=== PATIENT | female | born 1970 | race Caucasian/White ===

== ENCOUNTER 2021-05-03 05:01 | Emergency (ER) | payer SELFPAY ==
[2021-05-03 05:01] VITALS: BP 195/91; PULSE 140; RESP 20; TEMP 37.1; O2SAT 98; BMI 44.4
[2021-05-03 05:08] VITALS: BP 195/91; PULSE 136; RESP 36
--- NOTE | 2021-05-03 05:12 | EKG12_ITS ---
Test Reason : CP Blood Pressure : / mmHG Vent. Rate : 108 BPM Atrial Rate : 108 BPM P-R Int : 138 ms QRS Dur : 088 ms QT Int : 348 ms P-R-T Axes : 065 031 028 degrees QTc Int : 466 ms Sinus tachycardia Otherwise normal ECG Confirmed by BERNADETTE SINGER, SHEILA ([id number]), fan mail editor BRENDA URBAN ([id number]) on 05/08/2021 6:43:37 AM Referred By: CHRISTINA Confirmed By:SHEILA FLEMING MD
--- NOTE | 2021-05-03 05:13 | EDS_ITS ---
HPI History of Present Illness Chief Complaint: Chest Pain Informant: patient and spouse/S.O. Narrative Narrative: 50-year-old female presenting to the emergency department with left- sided chest pain. She notes that the pain is severe tonight. She has had it for the past couple days. She notes that things that make it worse include laying on the left side touching her upper left back and chest, deep breathing and moving. She notes it feels better if she holds her chest. She denies any DVT or PE risk factors. She states that she was thinking that it was indigestion possibly her gallbladder because she thought her gallbladder was on the left side. She is worried she is having a heart attack. PFSH PFSH Home Medications diazepam 5 mg PO Q8 PRN #15 tab 05/03/21 [Rx Last Taken Unknown] oxycodone-acetaminophen 1 tab PO Q6H PRN PRN 5 Days #20 tablet 05/03/21 [Rx Last Taken Unknown] Allergy/AdvReac Type Severity Reaction Status Date / Time ciprofloxacin [From Cipro] Allergy Rash Verified 05/03/21 05:08 Penicillins Allergy Unknown Verified 05/03/21 05:07 Sulfa (Sulfonamide Allergy Rash Verified 05/03/21 05:07 Antibiotics) Social History (Updated 05/03/21 @ 05:[address] Keo Huitron, DO) Smoking Status: Former smoker substance use type: does not use ROS ROS ED Constitutional Constitutional ED: Denies chills or weight loss Eyes Eyes: Denies change in vision or diplopia ENT ENT ED: Denies ear pain, rhinorrhea or sore throat Cardiovascular Cardiovascular: Reports chest pain; Denies orthopnea, palpitations or racing heartbeat Respiratory/Chest Respiratory/Chest: Denies cough, dyspnea or orthopnea Gastrointestinal Gastrointestinal: Reports abdominal pain; Denies diarrhea, nausea or vomiting Genitourinary Genitourinary ED: Denies dysuria, hematuria or urinary frequency Musculoskeletal Musculoskeletal: Denies arthralgias or myalgias Integumentary Denies abscess or rash Neurologic Neurologic: Denies headache(s) or weakness Psychiatric Psychiatric: Denies anxiety, depression, suicidal ideation or suicidal thoughts Endocrine Endocrinology: Denies polydipsia, polyphagia or polyuria Allergic/Immunologic Allergic/Immunologic ED: Denies mouth swelling, tongue swelling or urticaria EXAM Physical Exam Const Vital Signs: 05/03/21 05:01 10/14/21 05:08 05/03/21 06:23 Temperature 98.8 F Temperature Source Oral Pulse Rate 140 H 136 H 90 Respiratory Rate 20 H 36 H 23 H Respiratory Effort Normal Blood Pressure 195/91 H 195/91 H Blood Pressure Mean 125 125 Pulse Ox 98 99 Oxygen Delivery Method Room Air Room Air Positive well nourished and well developed General Appearance ED: well developed HEENT Reports normocephalic, head/scalp atraumatic and moist mucous membranes Eyes PERRL and EOMs intact bilaterally Neck no lymphadenopathy, supple and no JVD Chest Wall Chest Narrative: Tender to palpation left chest left upper back Resp normal respiratory effort and clear to auscultation bilaterally Cardio regular rate and no murmurs Rate: tachycardic GI normal to inspection, nondistended, normoactive bowel sounds and non-tender Palpation: soft Back/Spine no CVA tenderness and normal ROM Extremity normal to inspection General Extremety ED: Negative for edema General Extremity: Negative for edema Neuro oriented x3 and CN's II-XII intact bilaterally Sensorium / Orientation: alert Motor Exam: strength 5/5 throughout Psych Mood & Affect: anxious and tearful; Negative for depressed Skin no rashes or lesions noted and no wounds Heart Score History: Slightly/Non-Suspicious ECG: Normal Age: >45 - <65 years Risk Factors: 1 or 2 Risk Factors Troponin: </= Normal Limit Score: 2 MDM MDM MDM Narrative Medical decision making narrative: My interpretation of the chest x-ray is no acute process. CBC is normal. CMP then 8 hours of constant symptoms. Her D- dimer slightly elevated at 0.58. CTA of the chest was ordered which does not demonstrate any pulmonary embolism or dissection. Clinically the patient has somatic dysfunction of her rib cage. It is reproducible it is made better by holding. I can write for have some pain medication. Would recommend heat gentle stretching. She may wish to follow-up with a chiropractor. Patient is more comfortable after Ativan Toradol and oxycodone. Should be discharged home return if worsening or concerns Lab Data Attestation: I reviewed the patient's lab results. Labs: Laboratory Results - last 24 hr 05/03/21 05/03/21 05/03/21 05:10 05:10 05:10 WBC 9.1 RBC 5.04 Hgb 14.3 Hct 44.2 MCV 87.7 MCH 28.4 MCHC 32.4 RDW Std Deviation 41.0 RDW Coeff of Filippo 12.8 Plt Count 292 MPV 9.8 Immature Gran % (Auto) 0.400 Neut % (Auto) 53.8 Lymph % (Auto) 33.6 [place] % (Auto) 9.4 Eos % (Auto) 2.1 Baso % (Auto) 0.7 Absolute Neuts (auto) 4.9 Absolute Lymphs (auto) 3.07 Nucleated RBC % 0 D-Dimer Quant (PE/DVT) 0.58 H* Sodium 139 Potassium 4.1 Chloride 103 Carbon Dioxide 29.0 Anion Gap 7 BUN 15 Creatinine 1.05 H Estim Creat Clear Calc 57.68 Est GFR (MDRD) Af Amer 71 Est GFR (MDRD) Non-Af 59 L BUN/Creatinine Ratio 14.3 Glucose 106 Calcium 8.9 Total Bilirubin 0.40 AST 24 ALT 25 Alkaline Phosphatase 102 Troponin I High Sens 7 Total Protein 8.1 Albumin 3.6 Globulin 4.5 H Albumin/Globulin Ratio 0.8 L Lipase 146 Radiography Diagnostic Testing: Clinical Impression(s) from Imaging Studies Chest X-Ray 05/03/21 05:40 IMPRESSION: No radiographic evidence of acute cardiopulmonary disease. Electronically Signed: Rosa Gomez MD at 5:59 EDT , Service support , Chest CTA 05/03/21 05:49 IMPRESSION: No CTA demonstrated pulmonary embolism or arterial dissection. Electronically Signed: Rosa Gomez MD at 6:52 EDT , Service support , EKG Initial EKG: Attestation: I personally reviewed and interpreted this EKG as follows: Comments: Sinus tachycardia with a ventricular rate of 108 Discharge Plan Triage Chief Complaint: Chest Pain ED Provider: Keo Huitron Dx/Rx/DC Orders Clinical Impression: Segmental and somatic dysfunction of rib cage Instructions: ED Chest Pain, Noncardiac Prescriptions: New oxycodone-acetaminophen [oxycodone-acetaminophen] 1 TABLET tablet 1 tab PO Q6H PRN PRN (Reason: pain) 5 Days Qty: 20 RF: 0 diazepam [diazepam] 5 MG tablet 5 mg PO Q8 PRN (Reason: Muscle Spasm) Qty: 15 RF: 0 Primary Care Provider: Kevin Gee III Referrals: Kevin Gee III, [Primary Care Provider] -
[2021-05-03 05:24] LABS: Absolute Lymphocyte Count 3.07 X10^3/uL (0.83-4.51); Absolute Neutrophil Count 4.9 X10^3/uL (2.0-7.7); Basophil# 0.06 X10^3/uL; Basophil% 0.7 % (0-1); Eosinophil# 0.19 X10^3/uL; Eosinophils% 2.1 % (0-5); Hematocrit 44.2 % (37-47); Hemoglobin 14.3 g/dL (12.0-15.0); Lymphocyte # 3.07 X10^3/ul (0.83-4.51); Lymphocyte % 33.6 % (19-41); Mean Corp Hgb Conc 32.4 g/dL (32-36); Mean Corpuscular Hgb 28.4 pg (27.0-32.0); Mean Corpuscular Volume 87.7 fL (81-99); Mean Platelet Vol. 9.8 fl (6.2-12.0); Monocyte# 0.86 X10^3/uL; Monocyte% 9.4 % (0-10); NRBC Flagged by Analyzer 0 % (0-5); Neutrophil # 4.92 X10^3/uL (2.7-7.7); Neutrophil % 53.8 % (47-70); Platelet Count 292 K/mm3 (150-450); RBC Distribution Width CV 12.8 % (11.6-14.6); Red Blood Count 5.04 M/mm3 (4.2-5.4); White Blood Count 9.1 K/mm3 (4.4-11.0)
[2021-05-03] MEDS: Ketorolac 30 MG/ML Syringe IV (05:24)
[2021-05-03] MEDS: LORazepam 2 MG/ML Syringe 1 MG IV (05:25)
--- NOTE | 2021-05-03 05:40 | RAD_ITS ---
STUDY: X-RAY CHEST REASON FOR EXAM: Female, 50 years old patient with chest pain. TECHNIQUE: Single PA view of the chest. COMPARISON: 07/18/2015. FINDINGS: Cardiac monitoring leads are present. The lungs are clear and expanded. There is no demonstrated pleural abnormality. Normal size heart. Normal mediastinum and taj. Normal visualized pulmonary arteries. Normal visualized aortic arch and descending thoracic aorta. Normal visualized thoracic spine. Normal visualized ribs, clavicles, and shoulders. There is no demonstrated abnormality of the visualized soft tissue structures of the upper abdomen. RAD/Chest 1 View (Portable) IMPRESSION: No radiographic evidence of acute cardiopulmonary disease. Electronically Signed: Rosa Gomez MD at 5:59 EDT , Service support ,
[2021-05-03 05:41] LABS: D-Dimer Quantitative (DVT/PE) 0.58 FEU/ug/m (0.27-0.49)
[2021-05-03 05:46] LABS: ALB/GLOB Ratio 0.8 RATIO (0.9-2.4); AST(SGOT) 24 U/L (15-37); Alanine Aminotransfer ALT/SGPT 25 U/L (13-56); Albumin, Serum 3.6 g/dL (3.2-5.0); Alkaline Phosphatase 102 U/L (45-117); Anion Gap 7 (5-15); BUN 15 mg/dL (7-18); BUN/Creat Ratio 14.3 RATIO (10-20); Calcium,Total 8.9 mg/dL (8.5-10.1); Chloride 103 mmol/L (98-107); Creatinine, Serum 1.05 mg/dL (0.55-1.02); EST Glomerular Filtration Rate 59 mL/min (>60); Est Glom Filt Rate - Afr Amer 71 mL/min (>60); Estimated Creatinine Clearance 57.68 ml/min; Globulin 4.5 g/dL (2.2-4.2); Glucose 106 mg/dL (74-106); Lipase 146 U/L (73-393); Potassium 4.1 mmol/L (3.5-5.1); Protein, Total 8.1 g/dL (6.4-8.2); Sodium Level 139 mmol/L (136-145); Troponin-I HS 7 pg/mL (3.0-54.0)
--- NOTE | 2021-05-03 05:49 | CT_ITS ---
STUDY: CTA CHEST REASON FOR EXAM: Female, 50 years old patient with elevated D Dimer and chest pain. RADIATION DOSAGE (If Supplied By Facility): CTDIvol = ( 16.22 ) mGy, DLP = ( 495.04 ) mGycm TECHNIQUE: The examination was performed with the intravenous administration of 100 mL of Isovue-370. Post-processing of the angiographic images was performed, with multiplanar reformation and 3D reconstruction. Individualized dose optimization techniques were used for this CT. COMPARISON: Prior comparison studies are not available for review at this time. FINDINGS: Normal enhancement of the main pulmonary artery and right and left pulmonary arteries. Normal enhancement of the bilateral peripheral pulmonary arteries. There is no demonstrated pulmonary embolism. Normal thoracic aorta and visualized great vessels. There is no demonstrated aortic dissection. Normal heart and pericardium. Normal mediastinum. Normal hilar regions. Normal visualized trachea and bronchi. The lungs are well expanded. Normal pulmonary parenchyma. Normal pleura. Normal chest wall structures. Normal osseous structures. Normal visualized upper abdomen. CT/CTA Chest W/WO Contrast IMPRESSION: No CTA demonstrated pulmonary embolism or arterial dissection. Electronically Signed: Rosa Gomez MD at 6:52 EDT , Service support ,
[2021-05-03 06:23] VITALS: PULSE 90; RESP 23; O2SAT 99
[2021-05-03 07:27] VITALS: BP 123/68; PULSE 93; RESP 15; O2SAT 96
[2021-05-03] MEDS: oxyCODONE 5 MG Tablet 10 MG PO (07:30)
== END 2021-05-03 07:38 | disposition home or self-care (01) ==
PROVIDERS: Emergency Provider Emergency Medicine; PCP Family Medicine
DX: M99.08 Segmental and somatic dysfunction of rib cage (principal); Z87.891 Personal history of nicotine dependence
CPT/HCPCS: 71045; 71275; 80053; 83690; 84484; 85025; 85379; 93005; 96374; 96375; 99285; Q9967; A4216

== ENCOUNTER → 2023-07-10 | Outpatient (CLI) | payer OTHER, SELFPAY ==
[2023-07-10 17:37] LABS: Absolute Lymphocyte Count 2.78 X10^3/uL (0.83-4.51); Absolute Neutrophil Count 5.8 X10^3/uL (2.0-7.7); Basophil# 0.06 X10^3/uL; Basophil% 0.6 % (0-1); Eosinophil# 0.17 X10^3/uL; Eosinophils% 1.8 % (0-5); Hematocrit 41.7 % (37-47); Hemoglobin 13.3 g/dL (12.0-15.0); Lymphocyte # 2.78 X10^3/ul (0.83-4.51); Lymphocyte % 29.6 % (19-41); Mean Corp Hgb Conc 31.9 g/dL (32-36); Mean Corpuscular Hgb 28.1 pg (27.0-32.0); Mean Platelet Vol. 10.9 fl (6.2-12.0); Monocyte# 0.55 X10^3/uL; Monocyte% 5.9 % (0-10); NRBC Flagged by Analyzer 0 % (0-5); Neutrophil # 5.78 X10^3/uL (2.7-7.7); Neutrophil % 61.7 % (47-70); Platelet Count 310 K/mm3 (150-450); RBC Distribution Width CV 12.7 % (11.6-14.6); RBC Distribution Width SD 41.3 fl (35.1-43.9); Red Blood Count 4.74 M/mm3 (4.2-5.4); White Blood Count 9.4 K/mm3 (4.4-11.0)
[2023-07-10 18:12] LABS: Hemoglobin A1c 5.2 % (3.8-5.6)
[2023-07-10 18:15] LABS: AST(SGOT) 22 U/L (15-37); Alanine Aminotransfer ALT/SGPT 20 U/L (13-56); Albumin, Serum 3.8 g/dL (3.2-5.0); Alkaline Phosphatase 105 U/L (45-117); Anion Gap 7 (5-15); BUN 15 mg/dL (7-18); Calcium,Total 8.3 mg/dL (8.5-10.1); Chloride 106 mmol/L (98-107); Cholesterol 268 mg/dL (200); Creatinine, Serum 0.75 mg/dL (0.55-1.02); EST Glomerular Filtration Rate 86 mL/min (>60); Est Glom Filt Rate - Afr Amer 104 mL/min (>60); Free T3 2.7 pg/mL (2.18-3.98); Globulin 3.8 g/dL (2.2-4.2); Glucose 88 mg/dL (74-106); High Density Lipoprotein 46 mg/dL; Potassium 3.8 mmol/L (3.5-5.1); Protein, Total 7.6 g/dL (6.4-8.2); Sodium Level 139 mmol/L (136-145); T4 Free Direct 1.09 ng/dL (0.76-1.46); Thyroid Stim Hormone (TSH) 3.82 uIU/mL (0.358-3.74); Triglycerides 333 mg/dL; Very Low Density Lipoprotein 67 mg/dL (5-40)
[2023-07-15 17:07] LABS: Anti-Thyroglobulin AB < 1.0 IU/mL (0.0-0.9); Thyroglobulin, Serum Qt. 20.3 ng/mL (1.5-38.5); Thyroid Peroxidase AB 10 IU/mL (0-34)
== END | disposition home or self-care (01) ==
LOC: MFPLAB 15:50
PROVIDERS: PCP Family Medicine; Visit Provider Family Medicine
DX: R63.5 Abnormal weight gain (principal)
CPT/HCPCS: 36415; 80053; 80061; 82533; 83036; 84432; 84439; 84443; 84481; 85025; 86376; 86800

== ENCOUNTER → 2023-08-18 | Outpatient (CLI) | payer OTHER, SELFPAY ==
--- OUTSIDE RECORDS SUMMARY | 2023-08-18 15:27 | XMS RPT_ITS | CCD ---
Author Name Unknown Address [address] [facility] [facility] [address] [place] [address] Organization [facility] Care Team Providers Care Safety Companion Name Role Phone Gerard THEODORE MD, Kevin A Primary Care Provider Nadia vailable Gerard THEODORE MD, Kevin Sargent Unavailable Unavailab le Gerard THEODORE MD, Kevin A Primary Care Provider Nadia vailable SOPHIA BEAR Attending Unavailabl e GERARD THEODORE, EKVIN Sargent Primary Care Unavailable Unavailable Primary Care Provider Unavailabl bradley GEE III, KEVIN Sargent Primary Care Unavailable SULMA HYLTON Attending Unavail able Allergies Allergy Classification Reported Allergen(s) Allergy Type Date of Onset Reaction(s) Facility (8 sources) Erythromycin; Translations: [ERYTHROMYCIN] Drug Allergy 6 Intolerance, GI Upset [facility] Work Phone: (8 sources) Latex; Translations: [LATEX] Drug Intolerance 0 Hives [facility] (3 sources) Penicillins; Translations: [PENICILLINS] Drug Intolerance 6 Intolerance, GI Upset [facility] Work Phone: (8 sources) Sulfonamides (Antibiotic); Translations: [SULFA (SULFONAMIDE ANTIBIOTICS)] Drug Allergy 0 Rash, Vomiting [facility] (6 sources) Seasonal [Other] Propensity to adverse reactions 6 [facility] Work Phone: (5 sources) Penicillins Drug Intolerance 6 Intolerance, GI Upset [facility] Work Phone: (2 sources) OTHER; Translations: [OTHER] Propensity to adverse reactions (disorder) 6 [facility] Other [facility] Medications Current Medications Medication Drug Class(es) Dates Sig (Normalized) Sig (Original) doxycycline monohydrate 100 mg oral tablet (2 sources) Tetracycline-clas s Drug Start: 2022 End: 12-05-2022 take 1 tablet by mouth twice daily doxycycline monohydrate 100 mg tablet Indications: Bacterial sinusitis Take 1 tablet by mouth twice daily for 7 days. 14 tablet 0 2022 12/05/2022 Active Completed/Discontinued Medications Medication Drug Class(es) Dates Sig (Normalized) Sig (Original) acetaminophen 325 mg oral capsule (6 sources) acetaminophen 32 5 mg cap Take by mouth. 0 Active Problems Active Problems Problem Classification Problem Date Documented Date Episodic/Chronic Abdominal pain (3 sources) Unspecified abdominal pain; Translations: [Pelvic and perineal pain] Onset: 06-10-2022 05-19-2023 Episodic Anxiety disorders (6 sources) Anxiety; Translations: [Other specified anxiety disorders] Onset: 07-24-2015 07-24-2015 Chronic Disorders of lipid metabolism (6 sources) Hyperlipidemia; Translations: [Hyperlipidemia, unspecified] Onset: 10-13-2009 10-13-2009 Chronic Essential hypertension (6 sources) Benign essential hypertension; Translations: [Essential (primary) hypertension] Onset: 10-12-2009 10-12-2009 Chronic Immunizations and screening for infectious disease (3 sources) Patient encounter status; Translations: [Encounter for screening for human papillomavirus (HPV)] Episodic Other lower respiratory disease (1 source) Cough; Translations: [Cough] Episodic Other nutritional; endocrine; and metabolic disorders (6 sources) Body mass index 40+ - severely obese; Translations: [Morbid (severe) obesity due to excess calories] Onset: 12-10-2017 12-10-2017 Chronic Other nutritional; endocrine; and metabolic disorders (1 source) Severe obesity; Translations: [Morbid (severe) obesity due to excess calories] Chronic Other upper respiratory infections (1 source) Bacterial sinusitis; Translations: [Chronic sinusitis, unspecified] Chronic Prolapse of female genital organs (1 source) Midline cystocele; Translations: [Cystocele, midline] Chronic Past or Other Problems Problem Classification Problem Date Documented Date Episodic/Chronic Genitourinary symptoms and ill-defined conditions (16 sources) Microscopic hematuria; Translations: [Other microscopic hematuria] Onset: 07-24-2015 07-24-2015 Episodic Other and unspecified benign neoplasm (6 sources) Angiomyolipoma of right kidney; Translations: [Benign lipomatous neoplasm of kidney] Onset: 08-24-2015 08-24-2015 Episodic Other nutritional; endocrine; and metabolic disorders (6 sources) Weight gain; Translations: [Abnormal weight gain] Onset: 10-12-2009 10-12-2009 Episodic Spondylosis; intervertebral disc disorders; other back problems (6 sources) Low back pain; Translations: [Bilateral low back pain without sciatica] Onset: 07-24-2015 07-24-2015 Episodic Results Test Name Value Interpretation Reference Range Facil ity Vital Signs Date Time Vital Sign Value Performing Clinician Anat mendoza 05-19-2023 11:06-0400 Body temperature 97.2 [degF] Carmita Athy PA-C Work Phone: [facility] 05-19-2023 11:06-0400 Body weight 120.11 kg Carmita Athy PA-C Work Phone: [facility] 05-19-2023 11:06-0400 Diastolic blood pressure 88 mm[Hg] Carmita Athy PA-C Work Phone: [facility] 05-19-2023 11:06-0400 Heart rate 85 /min Carmita Athy PA-C Work Phone: [facility] 05-19-2023 11:06-0400 Respiratory rate 21 /min Carmita Athy PA-C Work Phone: [facility] 05-19-2023 11:06-0400 SaO2% (BldA) [Mass fraction] 99 % Carmita Athy PA-C Work Phone: [facility] 05-19-2023 11:06-0400 Systolic blood pressure 128 mm[Hg] Carmita Athy PA-C Work Phone: [facility] 2022 07:15-0400 Body temperature 96.21 [degF] Parker Adair APRN.[employer] INSTALLER Work Phone: [facility] 2022 07:15-0400 Body weight 117.94 kg Parker Adair APRN.[employer] INSTALLER Work Phone: [facility] 2022 07:15-0400 Diastolic blood pressure 90 mm[Hg] Parker Giovany [employer]STALLER Work Phone: [facility] 2022 07:15-0400 Heart rate 90 /min Parker Adair [employer] IN[employer]ALLER Work Phone: [facility] 2022 07:15-0400 Respiratory rate 21 /min Parker Giovany [employer] INSTALLER Work Phone: [facility] 2022 07:15-0400 SaO2% (BldA) [Mass fraction] 98 % Parker Adair [employer] INSTALLER Work Phone: [facility] 2022 07:15-0400 Systolic blood pressure 150 mm[Hg] Parker Giovany [employer] INSTALLER Work Phone: [facility] 06-17-2022 09:11-0500 Body weight 119.3 kg Sulma Hess MD Work Phone: [facility] 06-17-2022 09:11-0500 Diastolic blood pressure 80 mm[Hg] Sulma Hess MD Work Phone: [facility] 06-17-2022 09:11-0500 Systolic blood pressure 134 mm[Hg] Sulma Hess MD Work Phone: [facility] 05-21-2022 09:25-0400 Body temperature 97 [degF] Kelsi Sin [employer] IN[employer]ALLER Work Phone: [facility] 05-21-2022 09:25-0400 Body weight 120.29 kg Kelsi Sin [employer]ER Work Phone: [facility] 05-21-2022 09:25-0400 Diastolic blood pressure 86 mm[Hg] Kelsi Sin [employer] IN[employer]ER Work Phone: [facility] 05-21-2022 09:25-0400 Heart rate 90 /min Kelsi Sin [employer]ER Work Phone: [facility] 05-21-2022 09:25-0400 Respiratory rate 18 /min Kelsi Sin APRN.[employer] INSTALLER Work Phone: [facility] 05-21-2022 09:25-0400 SaO2% (BldA) [Mass fraction] 99 % Kelsi Sin [employer] INSTALLER Work Phone: [facility] 05-21-2022 09:25-0400 Systolic blood pressure 142 mm[Hg] Kelsi Sin [employer] INST[employer]ER Work Phone: [facility] 10-25-2021 19:11-0400 Body temperature 97.59 [degF] Jayda Kc APRN.[employer] INSTALLER Work Phone: [facility] 10-25-2021 19:11-0400 Body weight 124.65 kg Jayda Kc APRN.[employer] INSTALLER Work Phone: [facility] 10-25-2021 19:11-0400 Diastolic blood pressure 90 mm[Hg] Jayda Kc APRN.[employer] INSTALLER Work Phone: [facility] 10-25-2021 19:11-0400 Heart rate 95 /min Jayda Kc APRN.[employer] INSTALLER Work Phone: [facility] 10-25-2021 19:11-0400 Respiratory rate 18 /min Jayda Kc APRN.[employer] INSTALLER Work Phone: [facility] 10-25-2021 19:11-0400 SaO2% (BldA) [Mass fraction] 98 % Jayda Kc APRN.[employer] INSTALLER Work Phone: [facility] 10-25-2021 19:11-0400 Systolic blood pressure 142 mm[Hg] Jayda Kc APRN.[employer] INSTALLER Work Phone: [facility] Encounters Encounter Date Encounter Type Care Provider Facility Start: 05-20-2023 Telephone encounter Ngozi Barajsa APRN.[employer] INSTALLER Work Phone: [facility] Procedures Date Procedure Procedure Detail Performing Clinician Start: 05-19-2023 Urnls dip stick/tabl et reagent auto microscopy Carmita Matos PA-C Work Phone: Start: 05-19-2023 Urnls dip stick/tabl et rgnt auto w/o microscopy Ngozi Milly [employer] IN[employer]ALLER Work Phone: Start: 05-21-2022 Urnls dip stick/tabl et rgnt auto w/o microscopy Riaz Sabas [employer] INSTALLER Work Phone: Start: 09-12-2018 Adult depression screening assessment Jayda De [employer] INSTALLER Work Phone: Start: 10-13-2009 Lipid 1996 panel - Serum or Plasma Carmita Matos PA-C Work Phone: H/O: surgery History of loop electrical excision procedure (LEEP) Sulma Hess MD Work Phone: Plan of Treatment Date Care Activity Detail Author Start: 06-17-2027 HPV TESTING HPV TESTING [facility] Start: 06-17-2027 PAP TESTING PAP TESTING [facility] Start: 06-10-2025 DIABETES SCREEN DIABETES SCREEN [facility] Start: 06-10-2025 Diabetes Screening Diabetes Screening [facility] Start: 03-21-2023 Influenza vaccination [facility] Start: 07-21-2022 DEPRESSION ASSESSMENT DEPRESSION ASSESSMENT [facility] Start: 03-21-2022 Influenza vaccination [facility] Start: 09-12-2021 DIABETES SCREEN DIABETES SCREEN [facility] Start: 07-21-2021 DEPRESSION ASSESSMENT DEPRESSION ASSESSMENT [facility] Start: 2020 SHINGRIX VACCINE (1 of 2) SHINGRIX VACCINE (1 of 2) [facility] Start: 09-12-2019 Adult depression screening assessment DEPRESSION SCREENING [facility] Start: 09-12-2019 ANNUAL PCP TEAM CHRONIC DISEASE VISIT ANNUAL PCP TEAM CHRONIC DISEASE VISIT [facility] Start: 11-29-2015 COLOGUARD (FIT-DNA) COLOGUARD (FIT-DNA) [facility] Start: 11-29-2015 Colonoscopy COLONOSCOPY [facility] Start: 11-29-2015 COLORECTAL CANCER SCREENING COLORECTAL CANCER SCREENING [facility] Start: 11-29-[address] COLONOGRAPHY [facility] Start: 11-29-2015 FECAL OCCULT BLOOD FECAL OCCULT BLOOD [facility] Start: 11-29-2015 Lipid 1996 panel - Serum or Plasma Lipid Screening [facility] Start: 11-29-2015 LIPID SCREEN LIPID SCREEN [facility] Start: 11-29-2015 SIGMOIDOSCOPY SIGMOIDOSCOPY [facility] Start: 2010 Mammography [facility] Start: 04-08-2010 PAP TESTING PAP TESTING [facility] Start: 2000 HPV TESTING HPV TESTING [facility] Start: 1989 Urine microalbumin profile [facility] Start: 1988 BP CONTROLLED (<130/80) BP CONTROLLED (<130/80) [facility] Start: 1988 HEPATITIS C SCREENING HEPATITIS C SCREENING [facility] Start: 1988 HIV SCREENING HIV SCREENING [facility] Start: 11-29-1975 COVID-19 VACCINE (1) COVID-19 VACCINE (1) [facility] Start: 05-31-1971 COVID-19 VACCINE (#1) COVID-19 VACCINE (#1) [facility] Start: 1970 HEPATITIS B (1 of 3 - 3-dose series) HEPATITIS B (1 of 3 - 3-dose series) [facility] Start: 1970 Hepatitis B Vaccine (1 of 3 - 3-dose series) Hepatitis B Vaccine (1 of 3 - 3-dose series) [facility] Bacteria identified in Urine by Culture URINE CULTURE Microbiology Routine Dysuria Ordered: 05/21/2022 [facility] Work Phone: Immunizations Immunization Date Immunization Notes Care Provider Marisela lantigua 09-12-2018 influenza virus vacc ine, unspecified formulation Carmita Matos PA-C Work Phone: [facility] 04-27-2012 influenza virus vacc ine, unspecified formulation Jayda Kc APRN.[employer]FT [employer] INSTALLER Work Phone: [facility] 05-16-2009 novel influenza-H1N1 -09, all formulations Jayda Kc APRN.SO[employer] INSTALLER Work Phone: [facility] 04-21-2009 influenza virus vacc ine, unspecified formulation Jayda Kc APRN.SO[employer] INSTALLER Work Phone: [facility] 05-25-2008 influenza virus vacc ine, unspecified formulation Jayda Kc APRN.SOFT [employer] INSTALLER Work Phone: [facility] Social History Date Type Detail Facility Start: 10-10-2017 End: 06-17-2022 Tobacco smoking status NHIS Ex-smoker [facility] History of tobacco use Cigarette Smoker [facility] [place] Start: 10-25-2021 End: 05-19-2023 Alcohol intake Current drinker of alcohol (finding) [facility] Start: 1970 Sex Assigned At Not on file [facility] [place] Start: 10-15-2021 End: 06-10-2022 Exposure to SARS-CoV-2 (event) Not sure [facility] History of tobacco use Current smoker [facility] Start: 10-10-2017 End: 08-17-2022 Cigarettes smoked current (pack per day) - Reported 1 [facility] Start: 10-10-2017 End: 06-17-2022 Tobacco use and exposure Smokeless tobacco non-user [facility] Start: 06-17-2022 Tobacco Comment quit 1997 [facility] Start: 08-17-2022 End: 05-19-2023 Tobacco use panel [facility] Adult Depression Scr eening Assessment 0 [facility] Medical Equipment Procedure Code Equipment Code Equipment Origin al Text Equipment Identifier Dates Test blood sugar (s) 1 times daily. Dx: hypoglycemia E16.2 Insulin: No Start: 09-12-2018 Clinical Notes 10-25-2021 to 05-20-2023 Telephone Encounter - Carmencita Garrido LPN - 05/20/2023 10:09 AM EDTTelephone Encounter - Carmencita Garrido LPN - 05/20/2023 10:08 AM Carmita Calvillo PA-C - 05/19/2023 1:30 PM EDTPatient Instructions Note Date & Type Note Facility 05-20-2023 Miscellaneous Notes Patient given results and verbalized understanding of instructions given. Carmencita Garrido LPN ----- Message from Ngozi Atkins APRN.SOFT TOP INSTALLER sent at 05/20/2023 9:38 AM EDT ----- Urine culture did not show any evidence of infection. Recommend follow up with urology. Ngozi Atkins CNP documented in this encounter [facility] 05-19-2023 Note HNO ID: [id number] Author: Carmita Matos PA-C Service: ? Author Type: Physician Discovery Guide Type: Progress Notes Filed: 05/19/2023 2:39 PM Note Text: This note was created using Yapertriter. Subjective Aye Hamilton is a 52 year old female. HPI Patient presents with urinary frequency, dysuria, nausea over the past 4 to 5 days. She had called the good Rx doctor on-call who had called her in [facility]. She has taken 4 days of this. She states the dysuria had improved however she was still having some right-sided flank and back pain so came in for evaluation. She states she has chronic microscopic hematuria and has seen urology for this before. 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 She denies known kidney stones. No diarrhea or vomiting. No vaginal symptoms. Review of Systems HENT: Negative. Respiratory: Negative. Cardiovascular: Negative. Gastrointestinal: Positive for nausea. Genitourinary: Positive for dysuria, flank pain, frequency and urgency. Negative for hematuria, vaginal discharge and vaginal pain. Musculoskeletal: Positive for back pain. All other systems reviewed and are negative. PAST MEDICAL HISTORY Diagnosis Date Abnormal glandular Papanicolaou smear of cervix Abn. Pap smear (cervix) Environmental allergies She had to have allergy shots for a while Unspecified asthma(493.90) Current Outpatient Medications Medication Sig Dispense Refill fluticasone (FLONASE) 50 mcg/actuation nasal spray Use 2 Sprays in each nostril once daily. Rinse mouth after use. 1 Each 0 acetaminophen 325 mg cap Take by mouth. phenazopyridine (PYRIDIUM, GERIDIUM) 200 mg tablet Take 1 tablet by mouth three times daily as needed. (Patient not taking: Reported on 06/17/2022) 6 tablet 0 nitrofurantoin monohydrate and macrocrystal (MACROBID) 100 mg capsule Take 1 capsule by mouth every 12 hours for 5 days. (Patient not taking: Reported on 05/21/2022) Ixcbblmzvzhfrfp-Kobegyjqa-ZC (BROMFED DM) 2-30-10 mg/5 mL syrup Take 5 mL by mouth four times daily as needed. (Patient not taking: Reported on 2022) 120 mL 0 fluticasone (FLONASE) 50 mcg/actuation nasal spray Use 2 Sprays in each nostril once daily. Rinse mouth after use. (Patient not taking: Reported on 2022) 1 Bottle 0 predniSONE (DELTASONE) 20 mg tablet Take 1 tablet by mouth once daily. daily with food. (Patient not taking: Reported on 12/22/2020 ) 4 tablet 0 albuterol HFA (PROVENTIL HFA, VENTOLIN HFA) 90 mcg/actuation inhaler Inhale 2 Puffs as instructed every 4 hours as needed for Wheezing/Shortness of Breath. (Patient not taking: Reported on 12/22/2020 ) 1 Inhaler 0 blood sugar diagnostic (BLOOD GLUCOSE TEST) test strip Test blood sugar(s) 1 times daily. Dx: hypoglycemia E16.2 Insulin: No (Patient not taking: Reported on 08/09/2019 ) 50 Strip 2 No current facility-administered medications for this visit. 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 Thyroid Paternal Grandmother When she was younger they put her on medication. 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 She was taken off that medication and good since then. Social History Tobacco Use Smoking status: Former Packs/day: 1.00 Years: 10.00 Additional pack years: 0.00 Total pack years: 10.00 Types: Cigarettes Smokeless tobacco: Never Tobacco comments: quit 1997 Substance Use Topics Alcohol use: Yes Comment: occasional red wine Drug use: No Objective BP 128/88 Pulse 85 Temp 36.2 ?C (97.2 ?F) Resp 21 Wt 120.1 kg (264 lb 12.8 oz) LMP 10/05/2009 SpO2 99% BMI 44.07 kg/m? Physical Exam Vitals reviewed. Constitutional: Appearance: Normal appearance. HENT: Head: Normocephalic and atraumatic. Cardiovascular: Rate and Rhythm: Normal rate and regular rhythm. Heart sounds: Normal heart sounds. Pulmonary: Effort: Pulmonary effort is normal. Breath sounds: Normal breath sounds. Abdominal: General: Abdomen is flat. Palpations: Abdomen is soft. Tenderness: There is no abdominal tenderness. There is no right CVA tenderness, left CVA tenderness or guarding. Musculoskeletal: Cervical back: Neck supple. Skin: General: Skin is warm a (more content not included)... [facility] 05-19-2023 History of Presen t illness Narrative This note was created using 360pi. Subjective Aye Hamilton is a 52 year old female. HPI Patient presents with urinary frequency, dysuria, nausea over the past 4 to 5 days. She had called the good Rx doctor on-call who had called her in [facility]. She has taken 4 days of this. She states the dysuria had improved however she was still having some right-sided flank and back pain so came in for evaluation. She states she has chronic microscopic hematuria and has seen urology for this before. 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 She denies known kidney stones. No diarrhea or vomiting. No vaginal symptoms. Review of Systems HENT: Negative. Respiratory: Negative. Cardiovascular: Negative. Gastrointestinal: Positive for nausea. Genitourinary: Positive for dysuria, flank pain, frequency and urgency. Negative for hematuria, vaginal discharge and vaginal pain. Musculoskeletal: Positive for back pain. All other systems reviewed and are negative. PAST MEDICAL HISTORY Diagnosis Date Abnormal glandular Papanicolaou smear of cervix Abn. Pap smear (cervix) Environmental allergies She had to have allergy shots for a while Unspecified asthma(493.90) Current Outpatient Medications Medication Sig Dispense Refill fluticasone (FLONASE) 50 mcg/actuation nasal spray Use 2 Sprays in each nostril once daily. Rinse mouth after use. 1 Each 0 acetaminophen 325 mg cap Take by mouth. phenazopyridine (PYRIDIUM, GERIDIUM) 200 mg tablet Take 1 tablet by mouth three times daily as needed. (Patient not taking: Reported on 06/17/2022) 6 tablet 0 nitrofurantoin monohydrate and macrocrystal (MACROBID) 100 mg capsule Take 1 capsule by mouth every 12 hours for 5 days. (Patient not taking: Reported on 05/21/2022) Kolyvxrxrofwmei-Znfpxucqo-TD (BROMFED DM) 2-30-10 mg/5 mL syrup Take 5 mL by mouth four times daily as needed. (Patient not taking: Reported on 2022) 120 mL 0 fluticasone (FLONASE) 50 mcg/actuation nasal spray Use 2 Sprays in each nostril once daily. Rinse mouth after use. (Patient not taking: Reported on 2022) 1 Bottle 0 predniSONE (DELTASONE) 20 mg tablet Take 1 tablet by mouth once daily. daily with food. (Patient not taking: Reported on 12/22/2020 ) 4 tablet 0 albuterol HFA (PROVENTIL HFA, VENTOLIN HFA) 90 mcg/actuation inhaler Inhale 2 Puffs as instructed every 4 hours as needed for Wheezing/Shortness of Breath. (Patient not taking: Reported on 12/22/2020 ) 1 Inhaler 0 blood sugar diagnostic (BLOOD GLUCOSE TEST) test strip Test blood sugar(s) 1 times daily. Dx: hypoglycemia E16.2 Insulin: No (Patient not taking: Reported on 08/09/2019 ) 50 Strip 2 No current facility-administered medications for this visit. 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 Thyroid Paternal Grandmother When she was younger they put her on medication. 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 She was taken off that medication and good since then. Social History Tobacco Use Smoking status: Former Packs/day: 1.00 Years: 10.00 Additional pack years: 0.00 Total pack years: 10.00 Types: Cigarettes Smokeless tobacco: Never Tobacco comments: quit 1997 Substance Use Topics Alcohol use: Yes Comment: occasional red wine Drug use: No Objective BP 128/88 Pulse 85 Temp 36.2 C (97.2 F) Resp 21 Wt 120.1 kg (264 lb 12.8 oz) LMP 10/05/2009 SpO2 99% BMI 44.07 kg/m Physical Exam Vitals reviewed. Constitutional: Appearance: Normal appearance. HENT: Head: Normocephalic and atraumatic. Cardiovascular: Rate and Rhythm: Normal rate and regular rhythm. Heart sounds: Normal heart sounds. Pulmonary: Effort: Pulmonary effort is normal. Breath sounds: Normal breath sounds. Abdominal: General: Abdomen is flat. Palpations: Abdomen is soft. Tenderness: There is no abdominal tenderness. There is no right CVA tenderness, left CVA tenderness or guarding. Musculoskeletal: Cervical back: Neck supple. Skin: General: Skin is warm and dry. Neurological: General: No focal deficit present. Mental Status: She is alert. Assessment and Plan ASSESSMENT/PLAN: 1. Flank pain - ICD9: 789.09, ICD10: R10.9 Patient had trace blood in her urine, no other findings of infection. She had taken Macrobid for 4 days. I will send for culture. Did recommend she follow back up with urology as this sounds like it is more of a chronic flank pain issue that she has had for several years off and on. She did have a CT scan from May 2022 that I did review. Her abdomen is benign. - UA DIP, URINE (POC) - URINE CULTURE - URINALYSIS, WITH MICROSCOPIC - CONSULT TO UROLOGY Carmita Matos PA-C documented in this encounter [facility] 2022 Note HNO ID: [id number] Author: Parker Adair APRN.SOFT TOP INSTALLER Service: ? Author Type: Nurse Practitioner Type: Progress Notes Filed: 2022 7:50 AM Note Text: Subjective HPI HPI Aye Hamilton is a 52 year old female who presents today for CC of sinus pressure, st, cough, h/a. This started 1 week ago/worsening. Has tried otc medication for relief. Symptoms are worsened by nothing. Risk factors, no known sick exposures. Denies allergies. Nonsmoker. .Patient presents with: Sinus Problem: Congestion, sore throat, PEÑA x 1 week PAST MEDICAL HISTORY Diagnosis Date Abnormal glandular Papanicolaou smear of cervix Abn. 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 phenazopyridine (PYRIDIUM, GERIDIUM) 200 mg tablet Take 1 tablet by mouth three times daily as needed. (Patient not taking: Reported on 06/17/2022) nitrofurantoin monohydrate and macrocrystal (MACROBID) 100 mg capsule Take 1 capsule by mouth every 12 hours for 5 days. (Patient not taking: Reported on 05/21/2022) Bgcghbisxhmjdmm-Nmzewasaz-AV (BROMFED DM) 2-30-10 mg/5 mL syrup Take 5 mL by mouth four times daily as needed. (Patient not taking: Reported on 2022) fluticasone (FLONASE) 50 mcg/actuation nasal spray Use 2 Sprays in each nostril once daily. Rinse mouth after use. (Patient not taking: Reported on 2022) predniSONE (DELTASONE) 20 mg tablet Take 1 tablet by mouth once daily. daily with food. (Patient not taking: Reported on 12/22/2020 ) albuterol HFA (PROVENTIL HFA, VENTOLIN HFA) 90 mcg/actuation inhaler Inhale 2 Puffs as instructed every 4 hours as needed for Wheezing/Shortness of Breath. (Patient not taking: Reported on 12/22/2020 ) blood sugar diagnostic (BLOOD GLUCOSE TEST) test strip Test blood sugar(s) 1 times daily. Dx: hypoglycemia E16.2 Insulin: No (Patient not taking: Reported on 08/09/2019 ) FAMILY HISTORY Problem Relation Age of Onset Heart Father OR Heart Paternal Grandmother OR Alzheimer's Disease Paternal Grandfather other (High Cholesterol [Other]) Mother Hypertension Mother Hypertension Father Diabetes Paternal Grandmother She was old and was on orals then on insulin before she Cancer Paternal Grandfather Not sure what cancer. Thyroid Paternal Grandmother When she was younger they put her on medication. 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 She was taken off that medication and good since then. Social History Tobacco Use Smoking status: Former Packs/day: 1.00 Years: 10.00 Pack years: 10.00 Types: Cigarettes Smokeless tobacco: Never Tobacco comments: quit 1997 Substance Use Topics Alcohol use: Yes Comment: occasional red wine Drug use: No Review of Systems Constitutional: Negative for fever. HENT: Positive for congestion, sinus pain and sore throat. Negative for ear pain and nosebleeds. Respiratory: Positive for cough. Negative for shortness of breath and wheezing. Gastrointestinal: Negative for diarrhea and vomiting. Musculoskeletal: Negative for neck pain. Objective Blood pressure 150/90, pulse 90, temperature (!) 35.7 ?C (96.2 ?F), resp. rate 21, weight 117.9 kg (260 lb), last menstrual period 10/05/2009, SpO2 98 %. Physical Exam Constitutional: General: She is not in acute distress. Appearance: She is not toxic-appearing or diaphoretic. HENT: Head: Normocephalic and atraumatic. Right Ear: Hearing normal. Left Ear: Hearing normal. Nose: Right Sinus: Maxillary sinus tenderness present. Left Sinus: Maxillary sinus tenderness present. Mouth/Throat: Pharynx: Uvula midline. No pharyngeal swelling, oropharyngeal exudate, posterior oropharyngeal erythema or uvula swelling. Eyes: General: Lids are normal. No scleral icterus. Right eye: No discharge. Left eye: No discharge. Conjunctiva/sclera: Conjunctivae normal. Pupils: Pupils are equal, round, and reactive to light. Neck: Trachea: Trachea normal. Cardiovascular: Rate and Rhythm: Normal rate and regular rhythm. Heart sounds: Normal heart sounds. Pulmonary: Effort: Pulmonary effort is normal. Breath sounds: Normal breath sounds. Musculoskeletal: Cervical back: Normal range of motion and neck supple. Lymphadenopathy: Cervical: No cervical adenopathy. Right cervical: No superficial cervical adenopathy. Left cervical: No superficia (more content not included)... [facility] 2022 Instructions Parker Adair APRN.SAIRA - 2022 7:49 AM EDT SINUSITIS: You have sinusitis, an infection of the sinus cavities around the nose. This infection usually follows a respiratory illness; it can also be related to allergies, changes in atmospheric pressure (flying, diving), or anything that blocks nasal drainage. Symptoms include: headache, facial pain, a thick nasal discharge, congestion, and cough. The treatment includes antibiotic therapy, increasing oral fluids, and pain medication if needed. Nose spray decongestants (Afrin, Chinmay-Synephrine) and oral decongestants may be needed to reduce congestion and drainage. Rarely the sinus must be irrigated to remove the infected material. Sinusitis can lead to serious complications by spreading to other areas such as the eye or brain. Please call your doctor or return here right away if you have any of the following more serious symptoms: Unusual swelling around the eye or trouble seeing. Increasing pain, severe headache, or toothache. Nausea, vomiting, or unusual drowsiness. documented in this encounter [facility] 2022 History of Presen t illness Narrative Subjective HPI HPI Aye Hamilton is a 52 year old female who presents today for CC of sinus pressure, st, cough, h/a. This started 1 week ago/worsening. Has tried otc medication for relief. Symptoms are worsened by nothing. Risk factors, no known sick exposures. Denies allergies. Nonsmoker. .Patient presents with: Sinus Problem: Congestion, sore throat, PEÑA x 1 week PAST MEDICAL HISTORY Diagnosis Date Abnormal glandular Papanicolaou smear of cervix Abn. 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 phenazopyridine (PYRIDIUM, GERIDIUM) 200 mg tablet Take 1 tablet by mouth three times daily as needed. (Patient not taking: Reported on 06/17/2022) nitrofurantoin monohydrate and macrocrystal (MACROBID) 100 mg capsule Take 1 capsule by mouth every 12 hours for 5 days. (Patient not taking: Reported on 05/21/2022) Gzyuxrcsilhwpsq-Rbwgrbxot-TS (BROMFED DM) 2-30-10 mg/5 mL syrup Take 5 mL by mouth four times daily as needed. (Patient not taking: Reported on 2022) fluticasone (FLONASE) 50 mcg/actuation nasal spray Use 2 Sprays in each nostril once daily. Rinse mouth after use. (Patient not taking: Reported on 2022) predniSONE (DELTASONE) 20 mg tablet Take 1 tablet by mouth once daily. daily with food. (Patient not taking: Reported on 12/22/2020 ) albuterol HFA (PROVENTIL HFA, VENTOLIN HFA) 90 mcg/actuation inhaler Inhale 2 Puffs as instructed every 4 hours as needed for Wheezing/Shortness of Breath. (Patient not taking: Reported on 12/22/2020 ) blood sugar diagnostic (BLOOD GLUCOSE TEST) test strip Test blood sugar(s) 1 times daily. Dx: hypoglycemia E16.2 Insulin: No (Patient not taking: Reported on 08/09/2019 ) FAMILY HISTORY Problem Relation Age of Onset Heart Father OR Heart Paternal Grandmother OR Alzheimer's Disease Paternal Grandfather other (High Cholesterol [Other]) Mother Hypertension Mother Hypertension Father Diabetes Paternal Grandmother She was old and was on orals then on insulin before she Cancer Paternal Grandfather Not sure what cancer. Thyroid Paternal Grandmother When she was younger they put her on medication. 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 She was taken off that medication and good since then. Social History Tobacco Use Smoking status: Former Packs/day: 1.00 Years: 10.00 Pack years: 10.00 Types: Cigarettes Smokeless tobacco: Never Tobacco comments: quit 1997 Substance Use Topics Alcohol use: Yes Comment: occasional red wine Drug use: No Review of Systems Constitutional: Negative for fever. HENT: Positive for congestion, sinus pain and sore throat. Negative for ear pain and nosebleeds. Respiratory: Positive for cough. Negative for shortness of breath and wheezing. Gastrointestinal: Negative for diarrhea and vomiting. Musculoskeletal: Negative for neck pain. Objective Blood pressure 150/90, pulse 90, temperature (!) 35.7 C (96.2 F), resp. rate 21, weight 117.9 kg (260 lb), last menstrual period 10/05/2009, SpO2 98 %. Physical Exam Constitutional: General: She is not in acute distress. Appearance: She is not toxic-appearing or diaphoretic. HENT: Head: Normocephalic and atraumatic. Right Ear: Hearing normal. Left Ear: Hearing normal. Nose: Right Sinus: Maxillary sinus tenderness present. Left Sinus: Maxillary sinus tenderness present. Mouth/Throat: Pharynx: Uvula midline. No pharyngeal swelling, oropharyngeal exudate, posterior oropharyngeal erythema or uvula swelling. Eyes: General: Lids are normal. No scleral icterus. Right eye: No discharge. Left eye: No discharge. Conjunctiva/sclera: Conjunctivae normal. Pupils: Pupils are equal, round, and reactive to light. Neck: Trachea: Trachea normal. Cardiovascular: Rate and Rhythm: Normal rate and regular rhythm. Heart sounds: Normal heart sounds. Pulmonary: Effort: Pulmonary effort is normal. Breath sounds: Normal breath sounds. Musculoskeletal: Cervical back: Normal range of motion and neck supple. Lymphadenopathy: Cervical: No cervical adenopathy. Right cervical: No superficial cervical adenopathy. Left cervical: No superficial cervical adenopathy. Skin: Findings: No rash. Neurological: Mental Status: She is alert and oriented to person, place, and time. ASSESSMENT/PLAN: 1. Bacterial sinusitis - ICD9: 473.9, 041.9, ICD10: J32.9, B96.89 - Will begin treatment with as per antibiotic as written, see orders - Supportive care with plenty of fluids, rest, and analgesia prn. - Follow up in 3-5 days if symptoms persist or worsen. - DOXYCYCLINE MONOHYDRATE 100 MG TABLET - FLUTICASONE PROPIONATE 50 MCG/ACTUATION NASAL SPRAY,SUSPENSION Parker Adair APRN.SOFT TOP INSTALLER documented in this encounter [facility] 06-17-2022 Note HNO ID: [id number] Author: Sulma Hess MD Service: ? Author Type: Physician Type: Progress Notes Filed: 06/17/2022 10:21 AM Note Text: Store Gift Wrap Associate offered: Patient declines. Aye Hamilton is a 51 year old female with hx of four vaginal deliveries who presents for possible prolapse. Reports she began having dysuria, lower abdominal pain, frequency and urgency in early May. Symptoms worsened, she was concerned for kidney stones and she went to ED on 06/10/22. CT and urine cultures were normal at this time. She was instructed to follow up for possible prolapse but no pelvic exam was completed at the ED. Reports dysuria, lower abdominal pain, frequency and urgency has since resolved. She is still having pressure and that she feels like she has a tampon placed incorrectly and feels like something is out of place. States symptoms are worsened when she is constipated. Reports she feels like she is not emptying completely. Post menopausal for 10 years. Denies any urinary incontinence or vaginal discharge. Denies trying anything for the symptoms. Denies any pain with intercourse. Reports has not seen hull inspector in a very long time- has h/o abnormal paps that required LEEP procedure years ago. Pt also concerned with weight gain over the years. Has tried KETO and gained two pounds. Pt offers no other concerns today. OB History T3 L3 SAB0 IAB0 Ectopic0 Multiple0 Live Births0 Zipper Setter History LMP: 10/05/2009, Postmenopausal Age at Menarche: Age at First : Age at Menopause: Zipper Setter History Comments: Sexual Activity: Not Asked; No partner data on record Contraception: No contraception data on record PAST MEDICAL HISTORY Diagnosis Date Abnormal glandular Papanicolaou smear of cervix Abn. 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 Thyroid Paternal Grandmother When she was younger they put her on medication. 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 She was taken off that medication and good since then. Social History Tobacco Use Smoking status: Former Packs/day: 1.00 Years: 10.00 Pack years: 10.00 Types: Cigarettes Smokeless tobacco: Never Tobacco comments: quit 1997 Substance Use Topics Alcohol use: Yes Comment: occasional red wine Drug use: No Current Outpatient Medications Medication Sig phenazopyridine (PYRIDIUM, GERIDIUM) 200 mg tablet Take 1 tablet by mouth three times daily as needed. nitrofurantoin monohydrate and macrocrystal (MACROBID) 100 mg capsule Take 1 capsule by mouth every 12 hours for 5 days. (Patient not taking: Reported on 05/21/2022) acetaminophen 325 mg cap Take by mouth. Mwxvsagzsezppds-Pumbrpfjr-PM (BROMFED DM) 2-30-10 mg/5 mL syrup Take 5 mL by mouth four times daily as needed. fluticasone (FLONASE) 50 mcg/actuation nasal spray Use 2 Sprays in each nostril once daily. Rinse mouth after use. predniSONE (DELTASONE) 20 mg tablet Take 1 tablet by mouth once daily. daily with food. (Patient not taking: Reported on 12/22/2020 ) albuterol HFA (PROVENTIL HFA, VENTOLIN HFA) 90 mcg/actuation inhaler Inhale 2 Puffs as instructed every 4 hours as needed for Wheezing/Shortness of Breath. (Patient not taking: Reported on 12/22/2020 ) blood sugar diagnostic (BLOOD GLUCOSE TEST) test strip Test blood sugar(s) 1 times daily. Dx: hypoglycemia E16.2 Insulin: No (Patient not taking: Reported on 08/09/2019 ) No current facility-administered medications for this visit. Allergies As of Date: 06/17/2022 Allergen Noted Reaction LATEX 04/05/2010 Hives SEASONAL [OTHER] 09/09/2005 SULFA (SULFONAMIDE ANTIBIOTICS) 04/09/2010 Rash and Vomiting E-MYCIN [ERYTHROMYCIN] 09/09/2005 Intolerance and GI Upset PENICILLINS 09/09/2005 Intolerance and GI Upset Fully Assessed 06/10/2022 REVIEW OF SYSTEMS Abdomen: abdominal pressure. No bloating, early satiety, indigestion, or increased flatulence. No nausea, vomiting, diarrhea., Bladder: No dysuria, gross hematuria, urinary frequency, urinary urgency, or incontinence. Breast: No breast lumps, nipple d/c, overlying skin changes, redness or skin retra (more content not included)... [facility] 06-17-2022 Instructions Sulma Hess MD - 06/17/2022 9:53 AM EST The Obesity Code by Dr. Todd Hernandez Life in the Fasting Jesus by Ashley Man, Repeat By Emily MELLO documented in this encounter [facility] 06-17-2022 History of Presen t illness Narrative Store Gift Wrap Associate offered: Patient declines. Aye Hamilton is a 51 year old female with hx of four vaginal deliveries who presents for possible prolapse. Reports she began having dysuria, lower abdominal pain, frequency and urgency in early May. Symptoms worsened, she was concerned for kidney stones and she went to ED on 06/10/22. CT and urine cultures were normal at this time. She was instructed to follow up for possible prolapse but no pelvic exam was completed at the ED. Reports dysuria, lower abdominal pain, frequency and urgency has since resolved. She is still having pressure and that she feels like she has a tampon placed incorrectly and feels like something is out of place. States symptoms are worsened when she is constipated. Reports she feels like she is not emptying completely. Post menopausal for 10 years. Denies any urinary incontinence or vaginal discharge. Denies trying anything for the symptoms. Denies any pain with intercourse. Reports has not seen hull inspector in a very long time- has h/o abnormal paps that required LEEP procedure years ago. Pt also concerned with weight gain over the years. Has tried KETO and gained two pounds. Pt offers no other concerns today. OB History T3 L3 SAB0 IAB0 Ectopic0 Multiple0 Live Births0 Zipper Setter History LMP: 10/05/2009, Postmenopausal Age at Menarche: Age at First : Age at Menopause: Zipper Setter History Comments: Sexual Activity: Not Asked; No partner data on record Contraception: No contraception data on record PAST MEDICAL HISTORY Diagnosis Date Abnormal glandular Papanicolaou smear of cervix Abn. 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 Thyroid Paternal Grandmother When she was younger they put her on medication. 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 She was taken off that medication and good since then. Social History Tobacco Use Smoking status: Former Packs/day: 1.00 Years: 10.00 Pack years: 10.00 Types: Cigarettes Smokeless tobacco: Never Tobacco comments: quit 1997 Substance Use Topics Alcohol use: Yes Comment: occasional red wine Drug use: No Current Outpatient Medications Medication Sig phenazopyridine (PYRIDIUM, GERIDIUM) 200 mg tablet Take 1 tablet by mouth three times daily as needed. nitrofurantoin monohydrate and macrocrystal (MACROBID) 100 mg capsule Take 1 capsule by mouth every 12 hours for 5 days. (Patient not taking: Reported on 05/21/2022) acetaminophen 325 mg cap Take by mouth. Aysfpopwtazkhxf-Xlunjxwnm-IN (BROMFED DM) 2-30-10 mg/5 mL syrup Take 5 mL by mouth four times daily as needed. fluticasone (FLONASE) 50 mcg/actuation nasal spray Use 2 Sprays in each nostril once daily. Rinse mouth after use. predniSONE (DELTASONE) 20 mg tablet Take 1 tablet by mouth once daily. daily with food. (Patient not taking: Reported on 12/22/2020 ) albuterol HFA (PROVENTIL HFA, VENTOLIN HFA) 90 mcg/actuation inhaler Inhale 2 Puffs as instructed every 4 hours as needed for Wheezing/Shortness of Breath. (Patient not taking: Reported on 12/22/2020 ) blood sugar diagnostic (BLOOD GLUCOSE TEST) test strip Test blood sugar(s) 1 times daily. Dx: hypoglycemia E16.2 Insulin: No (Patient not taking: Reported on 08/09/2019 ) No current facility-administered medications for this visit. Allergies As of Date: 06/17/2022 Allergen Noted Reaction LATEX 04/05/2010 Hives SEASONAL [OTHER] 09/09/2005 SULFA (SULFONAMIDE ANTIBIOTICS) 04/09/2010 Rash and Vomiting E-MYCIN [ERYTHROMYCIN] 09/09/2005 Intolerance and GI Upset PENICILLINS 09/09/2005 Intolerance and GI Upset Fully Assessed 06/10/2022 REVIEW OF SYSTEMS Abdomen: abdominal pressure. No bloating, early satiety, indigestion, or increased flatulence. No nausea, vomiting, diarrhea., Bladder: No dysuria, gross hematuria, urinary frequency, urinary urgency, or incontinence. Breast: No breast lumps, nipple d/c, overlying skin changes, redness or skin retraction. Expanded ROS: N/A Allergies and current medication updated:Yes EXAM: BP 134/80 Wt 263 lb (119.3kg) LMP 10/05/2009 GENERAL: pleasant, female in no apparent distress HEENT: Normocephalic, atraumatic, mucus membranes moist, and no lesions NECK: full range of motion DERMATOLOGY: without lesions ABDOMEN: soft, non-tender, and no masses PELVIC: external genitalia normal, normal Bartholin's glands, urethra, [place]'s glands, no vulvar lesions, no cervical lesions, physiologic discharge present, normal appearing perineal body and perianal region, cystocele 1st degree, cervix flush with vagina BIMANUAL: uterus normal size, shape and consistency, no adnexal masses, and non-tender NEURO: alert and oriented x3,exam grossly non-focal EXTREMITIES: normal ASSESSMENT AND PLAN: Encounter Diagnosis ICD-10-CM 1. Cystocele, midline N81.11 2. Feeling of incomplete bladder emptying R39.14 3. Class 3 severe obesity due to excess calories with body mass index (BMI) of 40.0 to 44.9 in adult, unspecified whether serious comorbidity present (HCC) E66.01 Z68.41 4. Encounter for screening mammogram for malignant neoplasm of breast Z12.31 CHAYA SCREENING W KYM 5. Encounter for screening for human papillomavirus (HPV) Z11.51 PAP FLUID CERVICAL SCREENING 6. Pap smear for cervical cancer screening Z12.4 PAP FLUID CERVICAL SCREENING 7. History of loop electrical excision procedure (LEEP) Z98.890 PAP FLUID CERVICAL SCREENING 8. Reviewed minimal prolapse. Discussed proper lifting technique, weight loss, kegals. Reviewed possible weight loss assistance with medication. Discussed food journal exercising journal. Pt repots getting 10K steps/day but does not have pedometer. Reviewed previous ER Notes and tests. Discussed pessary but I don't feel necessary at this time. Medical Decision Making: Problems: Moderate: New problem with uncertain prognosis Data: Unique test(s) ordered: 2 Medical Decision Making Level: 3 - Low Sulma Holland MD documented in this encounter [facility] 05-21-2022 Note HNO ID: [id number] Author: Kelsi Sin APRN.SOFT TOP INSTALLER Service: ? Author Type: Nurse Practitioner Type: Progress Notes Filed: 05/21/2022 9:51 AM Note Text: This note was created using Yapertriter. Subjective Aye Hamilton is a 51 year old female. 51 year old female with PMH HTN, hyperlipidemia, anxiety and obesity presents for possible UTI. Acute onset of symptoms was Friday morning Started as a pinch +urgency +hesitancy +burning States yesterday evening my kidneys started to hurt Has pushed fluids and used Tylenol Denies blood in urine. Denies vaginal bleeding. Denies vaginal discharge. Denies recent sexual activity to coincide with symptoms. Denies skin rash or lesions. The history is provided by the patient. No high school foreign language teacher was used. UTI This is a new problem. The current episode started more than 2 days ago. The problem occurs every urination. The problem has been gradually worsening. The quality of the pain is described as burning. The pain is at a severity of 6/10. The pain is moderate. There has been no fever. She is Sexually active. There is No history of pyelonephritis. Associated symptoms include frequency, urgency and flank pain. Pertinent negatives include no chills, no sweats, no nausea, no vomiting, no discharge, no hematuria, no hesitancy and no possible . She has tried nothing for the symptoms. Her past medical history does not include kidney stones, single kidney, urological procedure, recurrent UTIs, urinary stasis or catheterization. PAST MEDICAL HISTORY Diagnosis Date Abnormal glandular Papanicolaou smear of cervix Abn. 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 Bwtlvybkttygdiy-Zqbvbijrg-AS (BROMFED DM) 2-30-10 mg/5 mL syrup Take 5 mL by mouth four times daily as needed. fluticasone (FLONASE) 50 mcg/actuation nasal spray Use 2 Sprays in each nostril once daily. Rinse mouth after use. nitrofurantoin monohydrate and macrocrystal (MACROBID) 100 mg capsule Take 1 capsule by mouth every 12 hours for 5 days. (Patient not taking: Reported on 05/21/2022) nitrofurantoin monohydrate and macrocrystal (MACROBID) 100 mg capsule Take 1 capsule by mouth twice daily for 7 days. predniSONE (DELTASONE) 20 mg tablet Take 1 tablet by mouth once daily. daily with food. (Patient not taking: Reported on 12/22/2020 ) albuterol HFA (PROVENTIL HFA, VENTOLIN HFA) 90 mcg/actuation inhaler Inhale 2 Puffs as instructed every 4 hours as needed for Wheezing/Shortness of Breath. (Patient not taking: Reported on 12/22/2020 ) blood sugar diagnostic (BLOOD GLUCOSE TEST) test strip Test blood sugar(s) 1 times daily. Dx: hypoglycemia E16.2 Insulin: No (Patient not taking: Reported on 08/09/2019 ) FAMILY HISTORY Problem Relation Age of Onset Heart Father OR Heart Paternal Grandmother OR Alzheimer's Disease Paternal Grandfather other (High Cholesterol [Other]) Mother Hypertension Mother Hypertension Father Diabetes Paternal Grandmother She was old and was on orals then on insulin before she Cancer Paternal Grandfather Not sure what cancer. Thyroid Paternal Grandmother When she was younger they put her on medication. 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 She was taken off that medication and good since then. Social History Tobacco Use Smoking status: Former Packs/day: 1.00 Years: 10.00 Pack years: 10.00 Types: Cigarettes Smokeless tobacco: Never Tobacco comments: quit 1997 Substance Use Topics Alcohol use: Yes Comment: occasional red wine Drug use: No Review of Systems Constitutional: Negative for chills, diaphoresis, fatigue and fever. Eyes: Negative for pain, discharge, redness and itching. Respiratory: Negative for apnea, cough, choking and chest tightness. Cardiovascular: Negative for chest pain, palpitations and leg swelling. Gastrointestinal: Negative for abdominal pain, nausea and vomiting. Genitourinary: Positive for dysuria, flank pain, frequency and urgency. Negative for hematuria and hesitancy. Musculoskeletal: Negative for arthralgias, back pain and gait problem. Skin: Negative for color change, pallor, rash and wound. Allergic/Immunologic: Negative for environmental allergies, food allergies and immunocompromised state. Neurological: Negative for dizziness and fa (more content not included)... [facility] 05-21-2022 Instructions Kelsi Sin APRN.[employer] - 05/21/2022 9:45 AM EDT Images from the original note were not included. Urinary Problem-When to Seek Help? Symptoms of a urinary problem may lead to a bladder infection. Women are at greater risk of a urinary tract infection than are men. Most urinary tract infections in women are caused by bacteria and involve the lower urinary tract including the bladder and urethra. Symptoms: Pain or burning when passing urine, urgency, frequency, blood in the urine, difficult emptying your bladder, and lower abdominal fullness or pressure. Common Causes: Sexual intercourse, menopause, constipation, uncontrolled diabetes, dehydration and feminine products such as tampons, and kidney stones. When to Get Help: Seek medical attention if you get frequent bladder infections, urinary concerns such as leakage, blood in the urine or frequent need to urinate. You may be recommended to get help from a specialist, such as a urologist. Diagnosis & Treatment: Lab testing may include: urinalysis, and urine culture that can be collected in the lab or walk-in clinic. Most bladder infections can easily be treated. A physician, nurse practitioner or physician acute care nursing assistant may treat with a short course of an antibiotic. Delaying treatment can lead to worsening symptoms, like a kidney infection. Self-Care: Avoid a full bladder, bubble baths, bath oils, food and beverages that may irritate the bladder such as caffeine. Avoid spermicide foam and diaphragms Void before and after sexual intercourse Wipe front to back after using the bathroom. Stay hydrated Stop Smoking Follow-up Care: Follow up testing is not needed in healthy young women if symptoms resolve. documented in this encounter [facility] 05-21-2022 History of Presen t illness Narrative This note was created using NoteWriter. Subjective Aye Hamilton is a 51 year old female. 51 year old female with PMH HTN, hyperlipidemia, anxiety and obesity presents for possible UTI. Acute onset of symptoms was Friday morning Started as a pinch +urgency +hesitancy +burning States yesterday evening my kidneys started to hurt Has pushed fluids and used Tylenol Denies blood in urine. Denies vaginal bleeding. Denies vaginal discharge. Denies recent sexual activity to coincide with symptoms. Denies skin rash or lesions. The history is provided by the patient. No high school foreign language teacher was used. UTI This is a new problem. The current episode started more than 2 days ago. The problem occurs every urination. The problem has been gradually worsening. The quality of the pain is described as burning. The pain is at a severity of 6/10. The pain is moderate. There has been no fever. She is Sexually active. There is No history of pyelonephritis. Associated symptoms include frequency, urgency and flank pain. Pertinent negatives include no chills, no sweats, no nausea, no vomiting, no discharge, no hematuria, no hesitancy and no possible . She has tried nothing for the symptoms. Her past medical history does not include kidney stones, single kidney, urological procedure, recurrent UTIs, urinary stasis or catheterization. PAST MEDICAL HISTORY Diagnosis Date Abnormal glandular Papanicolaou smear of cervix Abn. 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 Sbeqolcenmuknki-Xuxcdfiug-QT (BROMFED DM) 2-30-10 mg/5 mL syrup Take 5 mL by mouth four times daily as needed. fluticasone (FLONASE) 50 mcg/actuation nasal spray Use 2 Sprays in each nostril once daily. Rinse mouth after use. nitrofurantoin monohydrate and macrocrystal (MACROBID) 100 mg capsule Take 1 capsule by mouth every 12 hours for 5 days. (Patient not taking: Reported on 05/21/2022) nitrofurantoin monohydrate and macrocrystal (MACROBID) 100 mg capsule Take 1 capsule by mouth twice daily for 7 days. predniSONE (DELTASONE) 20 mg tablet Take 1 tablet by mouth once daily. daily with food. (Patient not taking: Reported on 12/22/2020 ) albuterol HFA (PROVENTIL HFA, VENTOLIN HFA) 90 mcg/actuation inhaler Inhale 2 Puffs as instructed every 4 hours as needed for Wheezing/Shortness of Breath. (Patient not taking: Reported on 12/22/2020 ) blood sugar diagnostic (BLOOD GLUCOSE TEST) test strip Test blood sugar(s) 1 times daily. Dx: hypoglycemia E16.2 Insulin: No (Patient not taking: Reported on 08/09/2019 ) FAMILY HISTORY Problem Relation Age of Onset Heart Father OR Heart Paternal Grandmother OR Alzheimer's Disease Paternal Grandfather other (High Cholesterol [Other]) Mother Hypertension Mother Hypertension Father Diabetes Paternal Grandmother She was old and was on orals then on insulin before she Cancer Paternal Grandfather Not sure what cancer. Thyroid Paternal Grandmother When she was younger they put her on medication. 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 She was taken off that medication and good since then. Social History Tobacco Use Smoking status: Former Packs/day: 1.00 Years: 10.00 Pack years: 10.00 Types: Cigarettes Smokeless tobacco: Never Tobacco comments: quit 1998 Substance Use Topics Alcohol use: Yes Comment: occasional red wine Drug use: No Review of Systems Constitutional: Negative for chills, diaphoresis, fatigue and fever. Eyes: Negative for pain, discharge, redness and itching. Respiratory: Negative for apnea, cough, choking and chest tightness. Cardiovascular: Negative for chest pain, palpitations and leg swelling. Gastrointestinal: Negative for abdominal pain, nausea and vomiting. Genitourinary: Positive for dysuria, flank pain, frequency and urgency. Negative for hematuria and hesitancy. Musculoskeletal: Negative for arthralgias, back pain and gait problem. Skin: Negative for color change, pallor, rash and wound. Allergic/Immunologic: Negative for environmental allergies, food allergies and immunocompromised state. Neurological: Negative for dizziness and facial asymmetry. Hematological: Negative for adenopathy. Does not bruise/bleed easily. Psychiatric/Behavioral: Negative for agitation and behavioral problems. Objective BP 142/86 Pulse 90 Temp 36.1 C (97 F) Resp 18 Wt 120.3 kg (265 lb 3.2 oz) LMP 10/05/2009 SpO2 99% BMI 44.13 kg/m Physical Exam Vitals and nursing note reviewed. Constitutional: General: She is not in acute distress. Appearance: Normal appearance. She is normal weight. She is not ill-appearing, toxic-appearing or diaphoretic. HENT: Head: Normocephalic and atraumatic. Right Ear: Ear canal and external ear normal. Left Ear: Ear canal and external ear normal. Nose: Nose normal. No congestion or rhinorrhea. Mouth/Throat: Mouth: Mucous membranes are moist. Pharynx: No oropharyngeal exudate or posterior oropharyngeal erythema. Eyes: General: Right eye: No discharge. Left eye: No discharge. Extraocular Movements: Extraocular movements intact. Conjunctiva/sclera: Conjunctivae normal. Pupils: Pupils are equal, round, and reactive to light. Cardiovascular: Rate and Rhythm: Normal rate and regular rhythm. Pulses: Normal pulses. Heart sounds: Normal heart sounds. No murmur heard. No friction rub. Pulmonary: Effort: Pulmonary effort is normal. No respiratory distress. Breath sounds: Normal breath sounds. No stridor. No wheezing, rhonchi or rales. Chest: Chest wall: No tenderness. Abdominal: General: Abdomen is flat. There is no distension. Palpations: Abdomen is soft. There is no mass. Tenderness: There is no abdominal tenderness. There is right CVA tenderness and left CVA tenderness. There is no guarding or rebound. Hernia: No hernia is present. Musculoskeletal: General: No swelling, tenderness, deformity or signs of injury. Normal range of motion. Cervical back: Normal range of motion and neck supple. No rigidity. Right lower leg: No edema. Left lower leg: No edema. Lymphadenopathy: Cervical: No cervical adenopathy. Skin: General: Skin is warm and dry. Capillary Refill: Capillary refill takes less than 2 seconds. Coloration: Skin is not jaundiced or pale. Findings: No bruising, erythema, lesion or rash. Neurological: General: No focal deficit present. Mental Status: She is alert and oriented to person, place, and time. Cranial Nerves: No cranial nerve deficit. Sensory: No sensory deficit. Motor: No weakness. Coordination: Coordination normal. Gait: Gait normal. Psychiatric: Mood and Affect: Mood normal. Behavior: Behavior normal. Thought Content: Thought content normal. Judgment: Judgment normal. Assessment and Plan ASSESSMENT/PLAN: 1. Urinary frequency - ICD9: 788.41, ICD10: R35.0 (primary diagnosis) acute - UA positive for hematuria - Send urine for culture - Begin treatment with Macrobid 100 mg BID for 7 days - Patient education for prevention given - UA DIP, URINE (POC) 2. Dysuria - ICD9: 788.1, ICD10: R30.0 acute - UA positive for hematuria - Send urine for culture - Begin treatment with Macrobid 100 mg BID for 7 days - Patient education for prevention given - URINE CULTURE Kelsi Sin APRN.[facility] documented in this encounter [facility] 10-25-2021 Instructions Jayda Kc APRN.CNP - 10/25/2021 7:55 PM EDT 1.) Get more rest than you usually do - this will speed your recovery. If you push hard with your usual busy schedule, you will be sicker longer. 2.) Drink a lot of water - enough to make you urinate every 2-3 hours (your urine should be a light yellow color). This helps thin the phlegm and sooth the airways. Gatorade (G2) is less in sugar and replaces your electrolytes if not eating well. 3.) Run a cool mist humidifier in your bedroom on high with the door closed. This is a natural way to decongest, and it helps lessen scratchy throats, nasal stuffiness and coughs. 4.) For those without blood pressure concerns, take Sudafed as a decongestant (decreases stuffiness-lets drain), but realize that you will need to take it every 4-6 hours for several days. The lower dose is generally better tolerated (30mg)... Some people can make feel fast heart rate/jittery. You also may try anti-allergy pill like Claritin(loratidine) 10mg or marcia, benadryl (makes sleepy) over the counter as directed to help with drippy nose. Mucinex 600-1200mg twice daily(plain) may help thin secretions so they are easier to cough up. Those with high blood pressure and not with prostate problems can try gvmd-lcy-fchuhvy Coricidin HBP for congestion. You may find nasal sprays such as Flonase or Nasacort, saline nasal spray and/or Netti Pot may be beneficial 5.) Take ibuprofen or acetominophen every 4-6 hours for pain/aches as needed if not contraindicated for you. Antibiotic as directed per prescription If you should breakout in a rash, stop the medicine and call the office. Any antibiotic has the potential to cause diarrhea due to alteration in the normal bacterial vance of the gut. This can be reduced by eating yogurt with active cultures or taking probiotics daily while on the medication. If diarrhea becomes severe (watery, large volumes or more than 3-4/day) call the office. Women may experience yeast vaginitis due to alteration in the vaginal vance. Symptoms include vaginal itching, irritation, and often a clumpy white discharge. If this occurs, there are several effective over the counter remedies available, including one-dose treatments. If these are unsuccessful, call the office. Antibiotics may interfer with control. If you are on oral contraceptives, use another form of protection (condoms, foams, jellies, diaphragm) throught the end of whatever pill pack you are on in 10 days. If you are not improving in 3-5 days or are worsening follow up with PCP documented in this encounter [facility] 10-25-2021 History of Presen t illness Narrative CC: Patient presents with: Chest Congestion: Pt reported SOB, chest pain x4 days Diarrhea: Pt denied blood, mucus HPI: Aye Hamilton is a 50 year old female who presents to the office with complaint of chest congestion, head congestion and cough, nonproductive for a few days. Symptoms are worsening Associated symptoms includes dyspnea facial pain and pressure. Denies fever, nausea, vomiting and diarrhea. Treatments tried include nothing so far. with no relief of symptoms. Sick contacts: unknown. History of asthma, frequent episodes of bronchitis, chronic bronchitis, bronchiectasis or COPD: No Smoker: No Seasonal/environmental allergies: No The ROS is otherwise negative. The patient's pmh, medications, allergies, and past visits are reviewed. PHYSICAL EXAM: BP 142/90 Pulse 95 Temp 36.4 C (97.6 F) Resp 18 Wt 124.6 kg (274 lb 12.8 oz) LMP 10/05/2009 SpO2 98% BMI 45.73 kg/m General appearance: alert, cooperative, pleasant, in no acute distress Head: Normocephalic Eyes: EOM's intact, conjunctiva pink and moist, no icterus, sclera white, non-injected Ears: Right ear: External ear/canal- Normal, TM - clear with good landmarks. Left ear: External ear/canal- Normal, TM - clear with good landmarks Oropharynx:moist without lesions, No erythema, exudates or tonsillar hypertrophy. Heart: Negative. RRR without obvious murmur, gallop, or rubs. No ectopy. Lungs: clear to auscultation, without rales or wheeze, good air exchange PAST MEDICAL HISTORY Diagnosis Date Abnormal glandular Papanicolaou smear of cervix Abn. Pap smear (cervix) Environmental allergies She had to have allergy shots for a while Unspecified asthma(493.90) PAST SURGICAL HISTORY Procedure Laterality Date ADENOIDECTOMY PRIMARY <AGE 12 Adenoidectomy APPENDECTOMY 1997 COLPOSCOPY CERVIX UPPER/ADJACENT VAGINA Colposcopy CONIZATION CERVIX W/WO D&C RPR ELTRD EXC 04/02/96 LEEP-Cervix, moderate to severe dysplasia MYRINGOTOMY ASPIR&/EUSTACHIAN TUBE NFLTJ ANES 10 y/o Myringotomy/tubes TUBAL LIGATION, 07/2007 ALLERGIES Latex, Seasonal [Other], Sulfa (Sulfonamide Antibiotics), E-Mycin [Erythromycin], and Penicillins MEDICATIONS guaifenesin/dextromethorphan (MUCINEX COUGH ORAL) Take by mouth. acetaminophen (TYLENOL) 325 mg cap Take by mouth. fluticasone (FLONASE) 50 mcg/actuation nasal spray Use 2 Sprays in each nostril once daily. Rinse mouth after use. predniSONE (DELTASONE) 20 mg tablet Take 1 tablet by mouth once daily. daily with food. albuterol HFA (PROVENTIL HFA, VENTOLIN HFA) 90 mcg/actuation inhaler Inhale 2 Puffs as instructed every 4 hours as needed for Wheezing/Shortness of Breath. azithromycin (ZITHROMAX Z-NEREIDA) 250 mg tablet Take 2 tablets day one, then 1 tablet daily days 2 through 5. blood sugar diagnostic (BLOOD GLUCOSE TEST) test strip Test blood sugar(s) 1 times daily. Dx: hypoglycemia E16.2 Insulin: No FAMILY HISTORY Problem Relation Age of Onset Heart Father OR Heart Paternal Grandmother OR Alzheimer's Disease Paternal Grandfather other (High Cholesterol [Other]) Mother Hypertension Mother Hypertension Father Diabetes Paternal Grandmother She was old and was on orals then on insulin before she Cancer Paternal Grandfather Not sure what cancer. Thyroid Paternal Grandmother When she was younger they put her on medication. 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 She was taken off that medication and good since then. Social History Tobacco Use Smoking status: Former Smoker Packs/day: 1.00 Years: 10.00 Pack years: 10.00 Types: Cigarettes Smokeless tobacco: Never Used Tobacco comment: quit 1997 Substance Use Topics Alcohol use: Yes Comment: occasional red wine Drug use: No ASSESSMENT/PLAN: 1. Cough - ICD9: 786.2, ICD10: R05.9 - XR CHEST 2V FRONTAL/LAT RESULT: Lines, tubes, and devices: None. Lungs and pleura: No consolidation. No lung mass. No pleural effusion. No pneumothorax. Cardiomediastinal silhouette: Normal cardiomediastinal silhouette. Bones and soft tissues: Unremarkable. IMPRESSION IMPRESSION: No acute radiographic abnormality. Chemical Processing Laborer: KIANNA Transcribe Date/Time: Oct 25 2021 7:47P Dictated by : ROLO DIXON MD Prescription instructions reviewed with patient as applicable. bromfed PRN and doxycycline bid for 5 days Potential red flag symptoms discussed with the patient. Reviewed appropriate action plan to take if red flag symptoms occur. Patient agreeable to treatment plan. Jayda Kc APRN.CNP documented in this encounter [facility] Urinary frequency- Primary Dysuria [facility] Diagnosis Cystocele, midline- Primary Feeling of incomplete bladder emptying Incomplete bladder emptying Class 3 severe obesity due to excess calories with body mass index (BMI) of 40.0 to 44.9 in adult, unspecified whether serious comorbidity present (HCC) Encounter for screening mammogram for malignant neoplasm of breast Other screening mammogram Encounter for screening for human papillomavirus (HPV) Special screening examination for human papillomavirus (HPV) Pap smear for cervical cancer screening Screening for malignant neoplasm of the cervix History of loop electrical excision procedure (LEEP) Other postprocedural status [facility] Diagnosis Bacterial sinusitis- Primary Unspecified sinusitis (chronic) [facility] Diagnosis Flank pain- Primary Abdominal pain, unspecified site [facility] Diagnostic Procedure Only (Routine) - Pending Review Specialty Diagnoses / Procedures Referred By Rashad johnson Referred To Contact [facility] Diagnoses Encounter for screening mammogram for malignant neoplasm of breast Procedures CHAYA SCREENING W KYM SCREENING DIGITAL BREAST TOMOSYNTHESIS BI SCREENING MAMMOGRAPHY BI 2-VIEW BREAST INC CAD Sulma Hylton MD [address] [place] [id number] [facility] [address] [place] [id number] Referral ID Status Reason Start Date Expiration Date Visits Requested Visits Authorized [id number] Pending Review Auto-Generat ed Referral 2 07/17/2023 1 1 [facility] Summary Purpose Family History No Family History Records FoundNo Family History Records Found Advance Directives No Advanced Directives Records FoundNo Advanced Directives Records Found Reason for Referral Specialty Diagnoses / Procedures Referred By Rashad johnson Referred To Contact Urology Diagnoses Flank pain Procedures CONSULT TO UROLOGY OFFICE/OUTPATIENT NEW HIGH MDM 60-74 MINUTES Carmita Matos, SH[address] [place] [address] Referral ID Status Reason Start Date Expiration Date Visits Requested Visits Authorized [id number] Pending Review PCP Requested Referral 3 05/18/2024 1 1 Additional Source Comments Source Comments (unrecognize d section and content) In the event this informatio n is protected by the Federal Confidentiality of Alcohol and Drug Abuse Patient Records regulations: The Federal rules restrict any use of the information to criminally investigate or prosecute any alcohol or drug abuse patient.[facility] the event this information is protected by the Federal Confidentiality of Alcohol and Drug Abuse Patient Records regulations: The Federal rules restrict any use of the information to criminally investigate or prosecute any alcohol or drug abuse patient.[facility] the event this information is protected by the Federal Confidentiality of Alcohol and Drug Abuse Patient Records regulations: The Federal rules restrict any use of the information to criminally investigate or prosecute any alcohol or drug abuse patient.[facility] HospitalIn the event this information is protected by the Federal Confidentiality of Alcohol and Drug Abuse Patient Records regulations: The Federal rules restrict any use of the information to criminally investigate or prosecute any alcohol or drug abuse patient.[facility] HospitalIn the event this information is protected by the Federal Confidentiality of Alcohol and Drug Abuse Patient Records regulations: The Federal rules restrict any use of the information to criminally investigate or prosecute any alcohol or drug abuse patient.[facility] HospitalIn the event this information is protected by the Federal Confidentiality of Alcohol and Drug Abuse Patient Records regulations: The Federal rules restrict any use of the information to criminally investigate or prosecute any alcohol or drug abuse patient.[facility] Reason for Visit (unrecogniz ed section and content) Reason Comments Urinary Problem Pt reported urinary frequency, burning, lower back pain x4 day. Reason Comments Prolapse Specialty Diagnoses / Procedures Referred By Contac t Referred To Contact [facility] Department Diagnoses est Procedures est Self [facility] Dept Referral ID Status Reason Start Date Expiration Date Visits Requested Visits Authorized [id number] Authorized Financial Clearance Required - Self Pay Patient Cleared - Qualified [id number] 09/10/2022 99 99 Reason Comments Sinus Problem Congestion, sore thr oat, PEÑA x 1 week Reason Comments UTI Lower back pain on r ight side, burning, frequency x 7 days Reason Comments Results Care Teams (unrecognized sec tion and content) Safety Companion Relationship Specialty Start Date End Date Kevin Gee III, MD NO FORWARDING ADDRESS PCP - General 05/14/02 INFORMATION SOURCE (unrecogn ized section and content) DATE CREATED AUTHOR AUTHOR'S ORGANIZ ATION 05/21/2023 [facility] FOR RECORDS PERTAINING TO PATIENTS WHO ARE OR HAVE BEEN ENROLLED IN A CHEMICAL DEPENDENCY/SUBSTANCEABUSE PROGRAM, SOME INFORMATION MAY BE OMITTED. This clinical summary was aggregated from multiple sources. Caution should be exercised in using it in the provision of clinical care. This summary normalizes information from multiple sources, and as a consequence, information in this document may materially change the coding, format and clinical context of patient data. In addition, data may be omitted in some cases. CLINICAL DECISIONS SHOULD BE BASED ON THE PRIMARY CLINICAL RECORDS. [employer] provides no warranty or guarantee of the accuracy or completeness of information in this document.
[2023-08-18 18:18] LABS: Thyroid Stim Hormone (TSH) 4.05 uIU/mL (0.358-3.74)
== END | disposition home or self-care (01) ==
LOC: MFPLAB 15:06
PROVIDERS: PCP Family Medicine; Visit Provider Family Medicine
DX: R79.89 Other specified abnormal findings of blood chemistry (principal)
CPT/HCPCS: 36415; 84443

== ENCOUNTER 2023-10-24 18:48 | Emergency (ER) | payer OTHER, SELFPAY ==
[2023-10-24 18:48] VITALS: BP 183/112; PULSE 117; RESP 20; TEMP 37.2; O2SAT 96
[2023-10-24 18:49] VITALS: BP 157/77; PULSE 118; RESP 16; O2SAT 95
--- NOTE | 2023-10-24 19:12 | CT_ITS ---
INDICATION: abdominal pain EXAMINATION: CT Abdomen And Pelvis W/ Contrast Injection TECHNIQUE: Helically acquired images were obtained of the abdomen and pelvis after IV contrast. A radiation dose optimization technique was used for this scan. IV Contrast dosage and agent: IV 100mL Isovue-300 Oral contrast: None. COMPARISON: None. FINDINGS: Visualized lung bases: Unremarkable Liver: Scattered subcentimeter hypodensities are too small to characterize but most likely cysts. Gallbladder: Unremarkable Spleen: Unremarkable Pancreas: Unremarkable Adrenal Glands: Unremarkable Kidneys: Unremarkable Vasculature: Mild scattered aortoiliac atherosclerotic calcifications. GI Tract: Scattered colonic diverticula. There is short segment wall thickening of the sigmoid colon with surrounding inflammatory changes. No focal fluid collection or free air. Lymphadenopathy: None Peritoneum: No ascites. Bladder: Unremarkable Reproductive organs: Unremarkable Bones/Soft tissues: No suspicious osseous or soft tissue lesions CT/Abdomen/Pelvis W IV Cont ONLY IMPRESSION: Acute sigmoid diverticulitis. No focal fluid collection or free air. Recommend colonoscopy after acute infection has resolved to rule out underlying malignancy. Electronically Signed: Harshal Fraser MD at 22:48 EDT ,
--- NOTE | 2023-10-24 19:16 | EDS_ITS ---
HPI <SHAWN Guadalupe - Last Filed: 10/24/23 22:21> History of Present Illness Chief Complaint: Abd Pain Narrative Narrative: 52-year-old female presents with abdominal issues and diarrhea. She states that she took Augmentin for sinusitis on 10/05 through 10/13. On 10/16 she was traveling and ate [place] food and the next day got severe diarrhea and abdominal cramping. No one else became ill. Since then she has had continued diarrhea every day but it slowed down and yesterday she was only dripping loose stool. However she continued to have suprapubic and rectal discomfort. Today she had a long ribbonlike bowel movement and increased rectal pain. She denies melena or hematochezia. She is occasionally felt nauseated with eating but has no vomiting. She has had a cholecystectomy. She has never had a colonoscopy. PFSH <SHAWN Guadalupe - Last Filed: 10/24/23 22:21> [facility] Medical History no medical history Home Medications diazepam 5 mg tablet 5 mg PO Q8 PRN Muscle Spasm #15 tabs 05/03/21 [Rx Last Taken Unknown] oxycodone-acetaminophen 5 mg-325 mg tablet 1 tab PO Q6H PRN PRN pain 5 days #20 TABLETS 05/03/21 [Rx Last Taken Unknown] amoxicillin 875 mg-potassium clavulanate 125 mg tablet 875 mg (0.875 x 875-125 mg) PO Q12H #20 TABLETS 10/25/23 [Rx Last Taken Unknown] Allergy/AdvReac Type Severity Reaction Status Date / Time ciprofloxacin [From Cipro] Allergy Rash Verified 10/24/23 18:50 Penicillins Allergy Unknown Verified 10/24/23 18:50 Sulfa (Sulfonamide Allergy Rash Verified 10/24/23 18:50 Antibiotics) Social History (Updated 05/03/21 @ 05:[address] Keo Huitron, DO) Smoking Status: Former smoker substance use type: does not use ROS <SHAWN Guadalupe - Last Filed: 10/24/23 22:21> ROS ED ROS Narrative Constitutional: Negative for fever, chills, malaise. CVS: Negative for chest pain. Respiratory: Negative for shortness of breath. GI: Positive for abdominal pain, nausea, diarrhea. Negative for vomiting, melena, hematochezia. : Negative for dysuria, hematuria or frequency. EXAM <SHAWN Guadalupe - Last Filed: 10/24/23 22:21> Physical Exam Narrative Exam Narrative: CONST: Patient sitting in no acute distress. EYES: Normal inspection. NECK: Normal inspection. RESP: No respiratory distress, CTAB. CVS: Slightly tachycardic with regular rhythm, no murmur, no gallop. ABD: Soft with suprapubic tenderness, no guarding or rebound, nondistended, no hepatosplenomegaly. SKIN: Color normal, no rash, warm, dry, intact. EXTREMITIES: Normal appearance, no pedal edema. NEURO: Oriented x4. PSYCH: Normal affect. Const Vital Signs: 10/24/23 18:48 10/24/23 18:49 10/24/23 20:49 Temperature 99 F Temperature Source Temporal Pulse Rate 117 H 118 H 87 Respiratory Rate 20 H 16 18 Blood Pressure 183/112 H 157/77 H 127/55 H Blood Pressure Mean 135 103 79 Pulse Ox 96 95 98 Oxygen Delivery Method Room Air Room Air 10/24/23 22:00 Temperature Temperature Source Pulse Rate 92 Respiratory Rate 17 Blood Pressure 115/57 L Blood Pressure Mean 76 Pulse Ox 95 Oxygen Delivery Method Room Air <Dr. Andrew Sharp MD - Last Filed: 10/25/23 00:42> Physical Exam Const Vital Signs: 10/24/23 18:48 10/24/23 18:49 10/24/23 20:49 Temperature 99 F Temperature Source Temporal Pulse Rate 117 H 118 H 87 Respiratory Rate 20 H 16 18 Blood Pressure 183/112 H 157/77 H 127/55 H Blood Pressure Mean 135 103 79 Pulse Ox 96 95 98 Oxygen Delivery Method Room Air Room Air 10/24/23 22:00 Temperature Temperature Source Pulse Rate 92 Respiratory Rate 17 Blood Pressure 115/57 L Blood Pressure Mean 76 Pulse Ox 95 Oxygen Delivery Method Room Air MDM <SHAWN Guadalupe - Last Filed: 10/24/23 22:21> [facility] Narrative Medical decision making narrative: History gathered from: Patient and spouse Differential includes viral diarrhea, diverticulitis, abscess, hemorrhoid, anal fissure Patient with about 1 week history of diarrhea and lower abdominal pain. She appears well and nontoxic. She was initially hypertensive and tachycardic but does not appear ill or septic. She has mild suprapubic and left lower quadrant tenderness. She has a normal rectal exam with no stool in the vault. Labs show white count of 12.4, normal electrolytes, creatinine 1.16. Urinalysis negative for infection. CT scan is pending. Lab Data Attestation: I reviewed the patient's lab results. Labs: Laboratory Results - last 24 hr 10/24/23 10/24/23 19:30 20:15 WBC 12.4 H RBC 4.89 Hgb 13.7 Hct 42.0 MCV 85.9 MCH 28.0 MCHC 32.6 RDW Std Deviation 39.8 RDW Coeff of Filippo 12.9 Plt Count 269 MPV 10.8 Immature Gran % (Auto) 0.400 Neut % (Auto) 75.0 H Lymph % (Auto) 16.9 L [place] % (Auto) 6.8 Eos % (Auto) 0.5 Baso % (Auto) 0.4 Absolute Neuts (auto) 9.3 H Absolute Lymphs (auto) 2.09 Nucleated RBC % 0 Sodium 139 Potassium 3.8 Chloride 104 Carbon Dioxide 28.0 Anion Gap 7 BUN 17 Creatinine 1.16 H Estim Creat Clear Calc 48.95 Est GFR (MDRD) Af Amer 63 Est GFR (MDRD) Non-Af 52 L BUN/Creatinine Ratio 14.7 Glucose 104 Calcium 9.4 Urine Color Yellow Urine Clarity Clear Urine pH 6.5 Ur Specific [place] 1.010 Urine Protein Negative Urine Glucose (UA) Normal Urine Ketones Negative Urine Occult Blood 10 H Urine Nitrite Negative Urine Bilirubin Negative Urine Urobilinogen Normal Ur Leukocyte Esterase Negative Urine RBC 0 SEEN Urine WBC 0 SEEN Ur Squamous Epith Cells 0 SEEN Urine Bacteria 0 SEEN Urine Mucus 0 SEEN Radiography Diagnostic Testing: Clinical Impression(s) from Imaging Studies Abdomen/Pelvis CT 10/24/23 19:12 IMPRESSION: Acute sigmoid diverticulitis. No focal fluid collection or free air. Recommend colonoscopy after acute infection has resolved to rule out underlying malignancy. Electronically Signed: Harshal Fraser MD at 22:48 EDT , <Dr. Andrew Sharp MD - Last Filed: 10/25/23 00:42> MDM Lab Data Labs: Laboratory Results - last 24 hr 10/24/23 10/24/23 19:30 20:15 WBC 12.4 H RBC 4.89 Hgb 13.7 Hct 42.0 MCV 85.9 MCH 28.0 MCHC 32.6 RDW Std Deviation 39.8 RDW Coeff of Filippo 12.9 Plt Count 269 MPV 10.8 Immature Gran % (Auto) 0.400 Neut % (Auto) 75.0 H Lymph % (Auto) 16.9 L [place] % (Auto) 6.8 Eos % (Auto) 0.5 Baso % (Auto) 0.4 Absolute Neuts (auto) 9.3 H Absolute Lymphs (auto) 2.09 Nucleated RBC % 0 Sodium 139 Potassium 3.8 Chloride 104 Carbon Dioxide 28.0 Anion Gap 7 BUN 17 Creatinine 1.16 H Estim Creat Clear Calc 48.95 Est GFR (MDRD) Af Amer 63 Est GFR (MDRD) Non-Af 52 L BUN/Creatinine Ratio 14.7 Glucose 104 Calcium 9.4 Urine Color Yellow Urine Clarity Clear Urine pH 6.5 Ur Specific [place] 1.010 Urine Protein Negative Urine Glucose (UA) Normal Urine Ketones Negative Urine Occult Blood 10 H Urine Nitrite Negative Urine Bilirubin Negative Urine Urobilinogen Normal Ur Leukocyte Esterase Negative Urine RBC 0 SEEN Urine WBC 0 SEEN Ur Squamous Epith Cells 0 SEEN Urine Bacteria 0 SEEN Urine Mucus 0 SEEN Radiography Diagnostic Testing: Clinical Impression(s) from Imaging Studies Abdomen/Pelvis CT 10/24/23 19:12 IMPRESSION: Acute sigmoid diverticulitis. No focal fluid collection or free air. Recommend colonoscopy after acute infection has resolved to rule out underlying malignancy. Electronically Signed: Harshal Fraser MD at 22:48 EDT , Treatment and Re-Evaluation Comments:: I have personally performed a face to face assessment of the patient and have reviewed the ELI Note. I performed a substantive portion of the visit including all aspects of the following. My ruffin findings include: History is almost 1 week of diarrhea and lower abdominal pain along with rectal pain that feels like it is up inside without hematochezia after eating [place] food, unknown if that is related but she remembers that meals soon prior to the onset. Also on antibiotics before the onset of this. Exam is obese. Tender left lower quadrant, rectal is benign and nontender no abscess. No guarding or rebound. Medical Decison Making agree with labs, CT to evaluate for diverticulitis, colitis, less likely to be appendicitis, perforation mesenteric ischemia. Will send for enteric pathogens if she provides diarrhea. Symptom control as well as IV fluids and reevaluate. I reviewed the CT images as well as report, it shows acute sigmoid diverticulitis that appears uncomplicated. I do believe this explains her symptoms. Antibiotics indicated, she is aware that is possible this makes her diarrhea worse, and I recommend prophylaxing against this with yogurt and probiotic which she is already doing and we discussed the doses. She has allergies preventing typical antibiotic dosing for diverticulitis. Therefore they recommended regimen for her would be cephalosporin along with Flagyl. Therefore she was given IV Rocephin and IV Flagyl doses prior to discharge. In discussing all of this with her in follow-up, she states that the antibiotic that she was on a couple weeks ago was Augmentin, she thought she was allergic to penicillin when she was a child her mom told her she had hives, but she took the Augmentin for 10 days and had no side effects or issues and she would like to try that again which I agree with, monotherapy would be better than 2 anti biotics with regards antibiotic associated diarrhea and other collateral damage such as C. difficile risk. If she becomes allergic she was advised to either return here or follow-up for a different antibiotic. She was offered analgesics but she declines as a prescription for home. Other additions or changes: [None] Discharge Plan Triage Chief Complaint: Abd Pain ED Midlevel Provider: Tegan Good ED Provider: Andrew Sharp Dx/Rx/DC Orders Clinical Impression: Diverticulitis of sigmoid colon Instructions: Diverticulitis Dc Prescriptions: New amoxicillin-pot clavulanate [amoxicillin-pot clavulanate] 875-125 mg tablet 875 mg PO Q12H Qty: 20 0RF No Action oxycodone-acetaminophen [oxycodone-acetaminophen] 1 TABLET tablet 1 tab PO Q6H PRN PRN (Reason: pain) 5 Days Qty: 20 0RF diazepam [diazepam] 5 MG tablet 5 mg PO Q8 PRN (Reason: Muscle Spasm) Qty: 15 0RF Primary Care Provider: Care Physician,No Primary Referrals: Jennifer Brizuela DO [Med Staff - Substation Operator Apprentice] - 1-2 Weeks Disposition Disposition: Home, Self Care
[2023-10-24 19:55] LABS: Anion Gap 7 (5-15); BUN 17 mg/dL (7-18); BUN/Creat Ratio 14.7 RATIO (10-20); Calcium,Total 9.4 mg/dL (8.5-10.1); Chloride 104 mmol/L (98-107); Creatinine, Serum 1.16 mg/dL (0.55-1.02); EST Glomerular Filtration Rate 52 mL/min (>60); Est Glom Filt Rate - Afr Amer 63 mL/min (>60); Estimated Creatinine Clearance 48.95 ml/min; Glucose 104 mg/dL (74-106); Potassium 3.8 mmol/L (3.5-5.1); Sodium Level 139 mmol/L (136-145)
[2023-10-24 20:09] LABS: Absolute Lymphocyte Count 2.09 X10^3/uL (0.83-4.51); Absolute Neutrophil Count 9.3 X10^3/uL (2.0-7.7); Basophil# 0.05 X10^3/uL; Basophil% 0.4 % (0-1); Eosinophil# 0.06 X10^3/uL; Eosinophils% 0.5 % (0-5); Hemoglobin 13.7 g/dL (12.0-15.0); Lymphocyte # 2.09 X10^3/ul (0.83-4.51); Lymphocyte % 16.9 % (19-41); Mean Corp Hgb Conc 32.6 g/dL (32-36); Mean Corpuscular Volume 85.9 fL (81-99); Mean Platelet Vol. 10.8 fl (6.2-12.0); Monocyte# 0.84 X10^3/uL; Monocyte% 6.8 % (0-10); NRBC Flagged by Analyzer 0 % (0-5); Neutrophil # 9.31 X10^3/uL (2.7-7.7); Platelet Count 269 K/mm3 (150-450); RBC Distribution Width CV 12.9 % (11.6-14.6); RBC Distribution Width SD 39.8 fl (35.1-43.9); Red Blood Count 4.89 M/mm3 (4.2-5.4); White Blood Count 12.4 K/mm3 (4.4-11.0)
[2023-10-24 20:24] LABS: Bacteria 0 SEEN /hpf (None Seen); Mucous, Urine 0 SEEN /hpf (<or=2+); Red Blood Cells-Urine 0 SEEN /hpf (0-5); Squamous Epithelial Cells - UA 0 SEEN /hpf (5-10); White Blood Cells 0 SEEN /hpf (0-5)
[2023-10-24 20:34] LABS: Color, Urine Yellow (Yellow); Glucose, Dipstick Normal (Normal); Ketone-Dipstick Negative (Negative); Leukocyte Esterase-Dipstick Negative /ul (Negative); Nitrite-Dipstick Negative (Negative); Occult Blood-Urine 10 /ul (Negative); Protein-Dipstick Negative (Negative); Urine Bilirubin Dipstick Negative (Negative); Urine Clarity Clear (Clear); Urine Urobilinogen Normal (Normal); Urine pH 6.5 (5.0 - 8.0)
[2023-10-24 20:49] VITALS: BP 127/55; PULSE 87; RESP 18; O2SAT 98
[2023-10-24 22:00] VITALS: BP 115/57; PULSE 92; RESP 17; O2SAT 95
[2023-10-24] MEDS: Ceftriaxone 1 GM/50 ML BAG IV (23:41)
[2023-10-25] VITALS: BP 124/60; PULSE 76; RESP 18; TEMP 37; O2SAT 98
[2023-10-25] MEDS: metroNIDAZOLE 500 MG/100 ML BAG 100 MG IV (00:41)
[2023-10-25 02:13] VITALS: BP 127/70; PULSE 80; RESP 18; TEMP 37; O2SAT 99
== END 2023-10-25 02:15 | disposition home or self-care (01) ==
PROVIDERS: Physician Assistant; Emergency Provider Emergency Medicine; Visit Provider Emergency Medicine
DX: K57.32 Diverticulitis of large intestine without perforation or abscess without bleeding (principal); Z87.891 Personal history of nicotine dependence
CPT/HCPCS: 74177; 80048; 81001; 85025; 96365; 96366; 99283; J7040; Q9967; A4216